=== PATIENT | female | born 1950 ===

== ENCOUNTER 2018-01-31 11:54 | Inpatient (IN) | payer MEDICARE ==
[~2018-01-31] VITALS: Ht 157.5 cm; Wt 67.7 kg
[2018-01-31] VITALS (11 sets, daily range): BP systolic 89–152; BP diastolic 48–81
--- NOTE | 2018-01-31 11:59 | NUR ---
ADMIT FEMALE PT TO 2A WITH A C/O FEVER. TEMP IS 102.8F. HR IS TACHYCARDIC AT 120B/MIN. O2SAT ON RA IS 80%. PT IS VERY LETHARGIC.
--- NOTE | 2018-01-31 12:10 | NUR ---
PLACED PT ON 100% NRM. O2SAT UP TO 100%. STARTED IV G20 LEFT AC AND ADDED ANOTHER IV LINE ON THE LEFT UPPER ARM G20 ORDERED.
--- NOTE | 2018-01-31 12:25 | NUR ---
STARTED IVF NS 1L ORDERED. ALL BLOOD CULTURES DRAWN BY RIPSHEAR OPERATOR.
--- NOTE | 2018-01-31 12:30 | NUR ---
SEEN AND EXAMINED BY DR MONTERO AND RECOMMENDED TO INTUBATE THE PT. NOTIFIED RT.
[2018-01-31] MEDS ORDERED: METRONIDAZOLE 500 MG/NS 100ML 100 ML IV ONE ×2 (12:45→13:41)
[2018-01-31] MEDS ORDERED: GENTAMICIN SULFATE INJ 80 MG in IV DEXTROSE 5% 100 ML IV ONE (12:45)
[2018-01-31] MEDS ORDERED: IV NORMAL SALINE 1000 ML BAG IV ONE (12:45)
[2018-01-31] MEDS ORDERED: VANCOMYCIN IV 1,000 MG in IV DEXTROSE 5% 250 ML IV ONE (12:45)
[2018-01-31] MEDS ORDERED: ACETAMINOPHEN 650 MG SUPP.RECT RC ONE ×2 (12:45→14:36)
--- NOTE | 2018-01-31 12:45 | NUR ---
PT TRANSFERRED TO 1A FOR THE INTUBATION.
--- NOTE | 2018-01-31 13:00 | NUR ---
PT PRE MEDICATED PRIOR TO INTUBATION WITH ETOMADATE 20MG IVP PER MD ORDER, PT STILL VERY RESTLESS. FOLLOWED BY VERSED 5MG IVP, AND THEN FOLLOWED WITH SUCCINYLCHOLINE 150MG IVP. SUCCESFUL INTUBATION USING 7.5 ET AT 22LIP LINE. ET TUBE CONNECTED TO VENTILATOR SETTING OF AC20, FIO2-100, VT-500, PEEP-5. PT STILL VERY RESTLESS. APPLIED SOFT WRIST RESTRAINTS BOTH ARMS.
[2018-01-31 13:02] LABS: BASOPHILS % (AUTO) 0.3 % (0.0-2.0); EOSINOPHILS % (AUTO) 0.1 % (0.0-7.0); HEMATOCRIT 41.6 % (31.2-41.9); HEMOGLOBIN 14.1 g/dL (10.9-14.3); LYMPHOCYTES # (AUTO) 0.5 K/uL (20.0-40.0); LYMPHOCYTES % (AUTO) 4.7 % (20.5-51.5); MEAN CORPUSCULAR HGB CONC 34 g/dL (32.3-35.6); MEAN CORPUSCULAR VOLUME 94.2 fL (75.5-95.3); MONOCYTES # (AUTO) 0.5 K/uL (2.0-10.0); MONOCYTES % (AUTO) 4.8 % (0.0-11.0); NEUTROPHILS # (AUTO) 9.2 K/uL (1.8-8.9); NEUTROPHILS % (AUTO) 90.1 % (38.5-71.5); PLATELET COUNT (AUTO) 218 K/uL (179-408); RED BLOOD CELL COUNT(AUTO) 4.42 MIL/uL (3.63-4.92); WHITE BLOOD COUNT (AUTO) 10.2 K/uL (3.8-11.8)
--- NOTE | 2018-01-31 13:05 | NUR ---
Pt orally intubated in ER by Dr Peralta, using a 7.5 ETT secured at 22cm lip line. Good color changed noted on capnographer, breath sounds equal bilateral. Pt placed on Continuous mechanical ventilation via Villegas vent with ordered settings of AC-20, VT-600, FIO2-100, PEEP+5. Pt tolerating vent settings well. SpO2-100% Blood gas drawn and results reported to Dr. Peralta, no changes ordered. Vent alarm parameters checked, on and audible. Vent plugged into red emergency outlet. Bag/valve/mask at bedside. Will continue to monitor Pt.
[2018-01-31] MEDS ORDERED: MIDAZOLAM HCL 5 MG/ML VIAL ONE (13:08)
[2018-01-31 13:09] LABS: CREATININE 0.9 mg/dL (0.6-1.3); POTASSIUM 3.3 mmol/L (3.5-5.1)
[2018-01-31 13:21] LABS: BILIRUBIN,DIRECT 0.1 mg/dL (0.0-0.2); BILIRUBIN,TOTAL 0.5 mg/dL (0.2-1.0); TOTAL PROTEIN, SERUM 7.9 g/dL (6.4-8.2)
[2018-01-31] MEDS ORDERED: VANCOMYCIN HCL 500 MG VIAL ONE (13:41)
[2018-01-31] MEDS ORDERED: GENTAMICIN SULFATE 80 MG/2 ML VIAL ONE (13:41)
[2018-01-31 13:46] LABS: ABG HCO3 23.4 mmol/L; ABG PCO2 42.2 mmHg (35.0-45.0); ABG PH 7.361 (7.350-7.450); ABG PO2 96.9 mmHg (75.0-100.0); ABG SITE RIGHT BRACHIAL; ABG TOTAL HEMOGLOBIN 12.7 G/dL (12.0-16.0); COHb 1.5 % (0.5-1.5); MetHb 0.3 % (0.0-1.5); O2Hb 95.7 % (94.0-97.0); VENT MODE VENT - A/C; VT, ABG 600 mL
--- NOTE | 2018-01-31 13:46 | NUR ---
ABG DONE 1 HOR POST INTUBATION AND RESULT INFORMED MD. VENT SETTING REMAINED THE SAME. NGT FR16 INSERTED ON THE LEFT NARES ORDERED. POST INTUBATION PCXR DONE.
[2018-01-31] MEDS ORDERED: VANCOMYCIN IV 200 ML ONE (13:55)
[2018-01-31] MEDS ORDERED: PROPOFOL 100 ML ONE ×2 (13:58→19:23)
[2018-01-31] MEDS: PROPOFOL 100 ML IV PRN (14:17)
[2018-01-31] MEDS ORDERED: ACETAMINOPHEN 325 MG SUPP ONE (14:44)
--- NOTE | 2018-01-31 15:20 | NUR ---
PT'S TEMPERATURE STILL UP 102.8F. MEDICATED WITH TYLENOL 975MG SUPPOSITORY GIVEN. UNABLE TO INSERT A FOLEYCATHETER DUE TO SOME PROLAPSE AT THE VAGINAL CANAL. AWARE.
--- NOTE | 2018-01-31 16:17 | NUR ---
DIPRIVAN DRIP UP TO 3OMCG/KG/MIN, PT GETS VERY AGITATED.
--- NOTE | 2018-01-31 18:30 | NUR ---
SEEN AND EXAMINED BY DR MCLAUGHLIN. HE WILL ORDER ADMITTING ORDERS. VENT SETTING RIGHT NOW IS AC20, FIO2-100%, VT-600, PEEP-5. O2SAT 100%. LATEST TEMP IS 102F. APPLIED COLD COMPRESS.
--- NOTE | 2018-01-31 19:00 | NUR ---
REPORT GIVEN TO EDIN SEVILLA. PT IS BEING ADMITTED TO CCU2.
[2018-01-31] MEDS ORDERED: PROPOFOL 1,000 MG/100 ML BOTTLE IV ONE (19:15)
[2018-01-31] MEDS ORDERED: ETOMIDATE 20 MG/10 ML VIAL IV ONE (19:19)
[2018-01-31] MEDS ORDERED: SUCCINYLCHOLINE CHLORIDE 200 MG/10 ML VIAL IV ONE (19:19)
--- NOTE | 2018-01-31 19:21 | NUR ---
MRSA SWAB DONE.
[2018-01-31] MEDS ORDERED: MAGNESIUM HYDROXIDE 30 ML LIQUID UDC PO PRN (19:30)
[2018-01-31] MEDS ORDERED: ONDANSETRON 4 MG/2 ML VIAL IV PRN (19:30)
[2018-01-31] MEDS ORDERED: HYDROCODONE/APAP 5-325MG TABLET PO PRN (19:30)
--- NOTE | 2018-01-31 19:44 | NUR ---
CLINICAL PHARMACY NOTE:VANCOMYCIN DOSING Request for vancomycin dosing on 67 y/o female 5'2" 155lbs for possible pneumonia Temp 102.8 BUN 15 Scr 0.9 WBC 10.2 also receiving Zosyn Received vancomycin 1gm in ER. Continue vancomycin 1gm ivpb q20h estimated trough 16. Will order trough level prior to 4ht dose. Will continue to monitor
--- NOTE | 2018-01-31 19:45 | NUR ---
Admitted pt to CCU Room-2 via gurney accompanied by ACID CORRECTION HAND and RTs, being bagged en route. Admission Dx: Acute Resp. Failure, under the services of Dr. Gunnar Canales/[facility]. Made comfortable in bed. Attached to vent with prescribed settings and manager cardiac, rhythm Sinus Tachy. Routine CCU admission care rendered. Please see CCU Admission Data/Profile. Unable to complete admission interview due to pt condition, absence of family/significant others, and no previous med records available. For follow up.
[2018-01-31] MEDS: IV NS 1000 ML 1,000 ML IV PRN (20:21)
[2018-01-31] MEDS: ENOXAPARIN SODIUM 40 MG/0.4 ML DISP.SYRIN SQ SCH (20:22)
--- NOTE | 2018-01-31 21:00 | NUR ---
Dr. Canales called for pt condition update and order verification. Aware of elevated Troponin trend, now up to 0.162 from initial <0.017. Order to do q 6 hr EKG and AM Echo. Will also start ASA, Lovenox, Lopressor. NG tube left nare repositioned to 60 cm at nasal tip and kept secure. Will repeat CXR in AM. Smith Fr. 16 inserted aseptically and atraumatically with immediate return of slightly cloudy yellow urine 1000 ml. Noted what appears to be a ?cystocele/prolapse. Remains febrile and cooling measures done. Diprivan drip titrating for sedation, NS at 75 ml/hr via 2 separate IV sites left arm. Bilateral soft wrist restraints in place, circ checks adequate. Nursing comfort measures and safety precautions observed at all times.
[2018-01-31] MEDS: PIPERACILLIN SODIUM/TAZOBACTAM 4.5 G in IV DEXTROSE 5% 50 ML IV SCH (21:18)
[2018-01-31] MEDS: MORPHINE SULFATE 2 MG/1 ML DISP.SYRIN IV PRN (21:21)
[2018-01-31 21:51] LABS: ABG BASE EXCESS 1.1 mmol/L; ABG HCO3 22.2 mmol/L; ABG PCO2 26.9 mmHg (35.0-45.0); ABG PH 7.535 (7.350-7.450); ABG PO2 103.9 mmHg (75.0-100.0); ABG SITE LEFT RADIAL; VENT MODE VENT - A/C; VT, ABG 600 mL
[2018-01-31 22:08] LABS: *BILIRUBIN,URIN NEGATIVE (NEGATIVE); *BLOOD, URINE 3+ (NEGATIVE); *CLARITY,URINE SLIGHTLY CLOUDY (CLEAR); *COLOR,URINE YELLOW (YELLOW); *KETONES,URINE NEGATIVE (NEGATIVE); *PROTEIN,URINE 2+ (NEGATIVE); *UROBILINOGEN,URINE 0.2 E.U./dl (NORMAL); LEUKOCYTE ESTERASE ,URINE TRACE (NEGATIVE); NITRITE, URINE NEGATIVE (NEGATIVE); PH,URINE 6.5 (5.0-8.0); UGLUCOSE NEGATIVE (NEGATIVE)
[2018-01-31 22:14] LABS: BACTERIA,URINE FEW /HPF (NONE SEEN); RBC,URINE 50-80 /HPF (0-3); SQUAMOUS EPITHELIAL CELL,UR MODERATE /HPF (NONE SEEN)
[2018-01-31 22:15] LABS: MUCUS,URINE MODERATE /LPF (0-FEW)
--- NOTE | 2018-01-31 22:15 | NUR ---
RECEIVED PATIENT IN ER. PATIENT IS ORALLY INTUBATED WITH A 7.5 ET TUBE. ET TUBE IS SECURED WITH THE ANCHOR FAST AND IS AT 22 CM AT THE LIP. PATIENT IS ON A GEE VENTILATOR WITH THE FOLLOWING SETTINGS: AC 20, VT 600, PEEP +5, FIO2 100%. SUCTIONED THICK WHITE/YELLOW SECRETIONS. TRANSPORTED PATIENT TO CCU BED 2 VIA AMBU BAG. NO COMPLICATIONS AND NO INCIDENT DURING TRANSPORT. HME CHANGED. ET TUBE MOVED TO THE LEFT SIDE OF THE MOUTH. VENT ALARMS CHECKED AND THEY ARE ON AND AUDIBLE. BLOOD GAS DRAWN AND RESULTS GIVEN TO DI UDFFY. CHANGED VENT SETTINGS PER MD ORDERS. VENT SETTINGS ARE NOW: AC 18, VT 600, PEEP +5, AND FIO2 60%. VENT IS PLUGGED IN THE RED OUTLET. AMBU BAG BY BEDSIDE. NO SOB NOTED AT THIS TIME. WILL CONTINUE TO MONITOR PATIENT.
[2018-01-31] MEDS: METOPROLOL TARTRATE 25 MG TABLET PO SCH (22:24)
[2018-01-31] MEDS: ASPIRIN 81 MG TAB.CHEW GT SCH (22:25)
[2018-01-31] MEDS: ACETAMINOPHEN 325 MG TABLET PO PRN (22:26)
[2018-01-31] MEDS: Z GUARD REMEDY PASTE 57 GM TUBE TOP PRN (22:27)
[2018-01-31] MEDS: PANTOPRAZOLE SODIUM 40 MG VIAL IV SCH (22:47)
[2018-02-01] VITALS (34 sets, daily range): BP systolic 91–151; BP diastolic 50–82
[2018-02-01] MEDS: PROPOFOL 100 ML IV PRN ×8 (01:27→23:17)
--- NOTE | 2018-02-01 02:00 | NUR ---
Troponin slightly down to 0.152. Monitor remains SR isolated PVC. Noted more secretions requiring frequent suctioning. Oral care done q 2 hr and PRN. HOB up and aspiration precautions maintained at all times.
--- NOTE | 2018-02-01 03:00 | NUR ---
Increased coughing, bucking the vent. Reinforced presence and need for ETT and soft wrist restraints. Encouraged to relax/rest. Diprivan drip continues to infuse (See IV spreadsheet). Morphine 2 mg IV given with good effect.
[2018-02-01] MEDS: MORPHINE SULFATE 2 MG/1 ML DISP.SYRIN IV PRN ×3 (03:04→19:06)
[2018-02-01 04:56] LABS: BASOPHILS # (AUTO) 0.1 K/uL (0.0-8.0); BASOPHILS % (AUTO) 0.5 % (0.0-2.0); EOSINOPHILS % (AUTO) 0.1 % (0.0-7.0); HEMATOCRIT 31.8 % (31.2-41.9); HEMOGLOBIN 10.8 g/dL (10.9-14.3); LYMPHOCYTES # (AUTO) 1.4 K/uL (20.0-40.0); LYMPHOCYTES % (AUTO) 12.6 % (20.5-51.5); MEAN CORPUSCULAR HEMOGLOBIN 31.2 uug (24.7-32.8); MEAN CORPUSCULAR HGB CONC 34 g/dL (32.3-35.6); MEAN CORPUSCULAR VOLUME 91.8 fL (75.5-95.3); MONOCYTES # (AUTO) 0.6 K/uL (2.0-10.0); NEUTROPHILS # (AUTO) 9.1 K/uL (1.8-8.9); NEUTROPHILS % (AUTO) 81.8 % (38.5-71.5); PLATELET COUNT (AUTO) 173 K/uL (179-408); RED BLOOD CELL COUNT(AUTO) 3.46 MIL/uL (3.63-4.92); WHITE BLOOD COUNT (AUTO) 11.1 K/uL (3.8-11.8)
[2018-02-01] MEDS: PIPERACILLIN SODIUM/TAZOBACTAM 4.5 G in IV DEXTROSE 5% 50 ML IV SCH ×3 (05:14→22:21)
[2018-02-01 05:15] LABS: THYROID STIMULATING HORMONE 1.255 mIU/mL (0.358-3.740)
[2018-02-01 05:19] LABS: BILIRUBIN,TOTAL 0.9 mg/dL (0.2-1.0); CREATININE 0.9 mg/dL (0.6-1.3); PHOSPHOROUS 2.4 mg/dL (2.5-4.9); POTASSIUM 2.9 mmol/L (3.5-5.1); TOTAL PROTEIN, SERUM 6.2 g/dL (6.4-8.2)
--- NOTE | 2018-02-01 06:00 | NUR ---
Am care rendered. Cooling measures continued; temp has been down to 99.5 orally. Continues to require Diprivan at 40 mcg/kg/min for max. sedation. Still readily gets agitated with tactile stimulation. Seem to prefer being turned to right side. Await for Dr. Ulloa for pulmonary consult. Please see CCU flowsheet and IV spreadsheet for trends and clinical data.
[2018-02-01] MEDS: IV NS 1000 ML 1,000 ML IV PRN ×2 (06:12→18:48)
[2018-02-01] MEDS: Z GUARD REMEDY PASTE 57 GM TUBE TOP PRN (06:12)
--- NOTE | 2018-02-01 07:49 | NUR ---
RECEIVED A 67 Y/O FEMALE PT, A CASE OF ACUTE RESPIRATORY FAILURE, UNDER SEDATION, BREATHING VIA ETT SIZE 7.5, LL 22, ON CMV WITH FIO2 60%, RR 18,TV600,PEEP 5. CONNECTED TO BOX TENDER SHOWING SR, HAS A NGT ON INTERMITTENT SUCTION, HAS TWO IV LINES, LT AC AND LT UA BOTH G20 RECEIVING IVF N/S @75ML/HR AND DIPRIVAN INF @ 40MG/HR, URINATING VIA FC. HOB ELEVATED.
[2018-02-01 07:58] LABS: ABG BASE EXCESS 1.8 mmol/L; ABG HCO3 23.7 mmol/L; ABG PCO2 28.1 mmHg (35.0-45.0); ABG PH 7.543 (7.350-7.450); ABG SITE RIGHT RADIAL; ABG TOTAL HEMOGLOBIN 10.9 G/dL (12.0-16.0); COHb 1.2 % (0.5-1.5); O2Hb 89.9 % (94.0-97.0); VENT MODE VENT - A/C
[2018-02-01 07:59] LABS: VT, ABG 600 mL
--- NOTE | 2018-02-01 08:30 | NUR ---
SEEN BY DR IGRON, UPDATES GIVEN ON PT , ASSESSMENT DONE.
[2018-02-01] MEDS: ASPIRIN 81 MG TAB.CHEW GT SCH (09:04)
[2018-02-01] MEDS: METOPROLOL TARTRATE 25 MG TABLET PO SCH ×2 (09:05→21:53)
[2018-02-01] MEDS: POTASSIUM CHLORIDE 50 ML IV SCH ×5 (09:05→13:49)
[2018-02-01] MEDS: PANTOPRAZOLE SODIUM 40 MG VIAL IV SCH (09:05)
--- NOTE | 2018-02-01 10:00 | NUR ---
SEEN BY DR TELLO, UPDATES GIVEN, ALL NEW ORDERS CARRIED OUT.
[2018-02-01] MEDS: VANCOMYCIN IV 1 G in PREMIXED 0 EACH IV SCH (10:15)
--- NOTE | 2018-02-01 12:37 | NUR ---
Clinical pharmacy note-Vancomycin dosing per pharmacy Subjective: To continue Vancomycin dosing on this patient for suspected pneumonia Objective: BUN 12 Scr 0.9 WBC 11.1 Temp 101.1 Ht 5'2" Wt 155 lbs Assessment/Plan: Will continue Vancomycin 1 gram IV every 20 hrs (third dose due tomorrow at 0600) and draw trough by 4th dose(not ordered yet) for expected trough around 16. Will monitor renal function closely to adjust the dose if needed.
[2018-02-01] MEDS ORDERED: NEUTRA PHOS PACKET PO ONE (15:15)
--- NOTE | 2018-02-01 15:50 | NUR ---
PT REMAINS ON MECHANICAL VENTILATION, TOLERATING CURRENT VENT SETTINGS WELL. NO S/S OF RESPIRATORY DISTRESS NOTED. ETT IS PATENT AND SECURED WITH TUBE BRAY AT 22 CM LIP LINE. SUCTIONED MODERATE AMOUNTS OF PALE YELLOW THICK SECRETIONS. ALARMS ARE ON AND AUDIBLE, BVM AT BEDSIDE. WILL CONTINUE TO MONITOR. CURRENT VENT SETTINGS AC 18, Vt 600, +5, 70% FIO2.
[2018-02-01] MEDS: OSMOLITE 1.2 CAL 1,000 ML LIQUID GT PRN (17:47)
--- NOTE | 2018-02-01 18:00 | NUR ---
PT TEMP 102.1, COLD COMPRESSES APPLIED AND COLD MATTRESS ORDERED.
[2018-02-01] MEDS: ACETAMINOPHEN 325 MG TABLET PO PRN (18:36)
--- NOTE | 2018-02-01 19:15 | NUR ---
PT RECEIVED ON GEE VENT WITH VENT SETTINGS OF AC 18, VT 600, PEEP +5, FIO2 60%. PT IS ORALLY INTUBATED WITH A 7.5 ETT APPROXIMATELY 22CM LIP LINE. VENT ALARMS CHECKED, ARE ON AND AUDIBLE. HME CHANGED. ORAL CARE DONE. ETT MOVED TO PT'S RIGHT SIDE OF MOUTH. NO VENT CHANGES MADE AT THIS TIME. AMBU BAG IS AT BEDSIDE. WILL CONTINUE TO MONITOR THROUGHOUT SHIFT. Addendum: 02/01/18 at 1932 by TORY DUBOIS RT SUCTIONED MODERATE AMOUNT OF THICK, PALE SECRETIONS AT THIS TIME.
--- NOTE | 2018-02-01 19:30 | NUR ---
Pt in room alert awake in no acute distress. Noted with periods of agitation when recently suctioned. IV sites patent and intact. Maintaining propofol at 40mcg/min and osmolilte 10ml/hr. F/c in tact clear and yellow with no odor. Temp noted 99.4 with cooling measures currently applied. radiation monitor showing sinus rhythm. Urine obtained for drug screening and sent to lab. 3 side rails raised with soft restraints maintained bilateral. RT is aware. Will continue to monitor.
[2018-02-01 20:12] LABS: *AMPHETAMINE, URINE NEGATIVE (NEGATIVE); *BARBITURATE, URINE NEGATIVE (NEGATIVE); *CANNABINOID, URINE NEGATIVE (NEGATIVE); *COCCAINE, URINE NEGATIVE (NEGATIVE); *OPIATE, URINE POSITIVE (NEGATIVE); *PHENCYCLIDINE SCREEN,URINE NEGATIVE (NEGATIVE)
--- NOTE | 2018-02-01 21:30 | NUR ---
PICC line successfully inserted to right upper arm by DI Lane. CXR done for placement. Ariana verified ok for PICC line to use. Peripheral IVs d/c. Diprivan & main IV attached to PICC line. Pt remained restless and agitated. New orders received from [facility] Harper may be increased up to 100mcg/kg/min. Noted and carried out.
[2018-02-01] MEDS: ATORVASTATIN 20 MG TABLET PO SCH (21:51)
[2018-02-01] MEDS: ENOXAPARIN SODIUM 40 MG/0.4 ML DISP.SYRIN SQ SCH (21:54)
[2018-02-01] MEDS: LORAZEPAM 2 MG/1 ML VIAL IV PRN (22:21)
[2018-02-02] VITALS (35 sets, daily range): BP systolic 94–151; BP diastolic 50–80
[2018-02-02] MEDS: PROPOFOL 100 ML IV PRN ×8 (00:46→22:31)
[2018-02-02] MEDS: MORPHINE SULFATE 2 MG/1 ML DISP.SYRIN IV PRN (01:26)
[2018-02-02 04:50] LABS: BASOPHILS % (AUTO) 0.3 % (0.0-2.0); EOSINOPHILS # (AUTO) 0.2 K/uL (0.0-0.7); EOSINOPHILS % (AUTO) 1.9 % (0.0-7.0); HEMATOCRIT 26.6 % (31.2-41.9); HEMOGLOBIN 9.2 g/dL (10.9-14.3); LYMPHOCYTES # (AUTO) 1.3 K/uL (20.0-40.0); LYMPHOCYTES % (AUTO) 12.8 % (20.5-51.5); MEAN CORPUSCULAR HEMOGLOBIN 31.7 uug (24.7-32.8); MEAN CORPUSCULAR HGB CONC 35 g/dL (32.3-35.6); MEAN CORPUSCULAR VOLUME 91.8 fL (75.5-95.3); MONOCYTES # (AUTO) 0.5 K/uL (2.0-10.0); MONOCYTES % (AUTO) 5.3 % (0.0-11.0); NEUTROPHILS # (AUTO) 8.2 K/uL (1.8-8.9); NEUTROPHILS % (AUTO) 79.7 % (38.5-71.5); PLATELET COUNT (AUTO) 140 K/uL (179-408); WHITE BLOOD COUNT (AUTO) 10.3 K/uL (3.8-11.8)
[2018-02-02 04:56] LABS: CREATININE 0.6 mg/dL (0.6-1.3); MAGNESIUM 1.9 mg/dL (1.8-2.4); PHOSPHOROUS 2.3 mg/dL (2.5-4.9)
[2018-02-02 05:12] LABS: POTASSIUM 2.8 mmol/L (3.5-5.1)
[2018-02-02] MEDS: PIPERACILLIN SODIUM/TAZOBACTAM 4.5 G in IV DEXTROSE 5% 50 ML IV SCH ×3 (05:59→21:26)
--- NOTE | 2018-02-02 06:15 | NUR ---
Serum Potassium reported 2.8 this morning. Nathan Braxton notified and ordered 60 meq KCL IV. Noted and carried out.
[2018-02-02] MEDS: VANCOMYCIN IV 1 G in PREMIXED 0 EACH IV SCH (06:29)
[2018-02-02] MEDS: POTASSIUM CHLORIDE 50 ML IV SCH ×6 (07:08→12:01)
--- NOTE | 2018-02-02 07:10 | NUR ---
PT WAS RECEIVED ON GEE VENT V#001 SETTING OF AC 18 VT 600 PEEP +5 FIO2 60%. PT ET-TUBE SECURED AND INTACT. 7.5 AT 22CM TUBE WAS MOVED TO THE LEFT SIDE. PT HME WAS CHANGED. PT SUCTION . CUFF CHECK WITH LUDLOW MACHINE OPERATOR. PT HAS NO TX ORDER. PT ABG WILL BE DONE AT 0900. VENT ALARMS ON AND AUDIBLE WILL CONTINUE TO MONITOR PT. AMBU-BAG AT BED SIDE.
--- NOTE | 2018-02-02 07:12 | NUR ---
Driprivan drip 50 ml bottles were used for this patient. Pharmacy aware of new orders.
--- NOTE | 2018-02-02 07:19 | NUR ---
All notes and documentation by Tan Spangler RN (on orientation) are checked by me for accuracy.
--- NOTE | 2018-02-02 07:25 | NUR ---
RECEIVED A 67 Y/O FEMALE PT, A CASE OF ACUTE RESPIRATORY FAILURE, UNDER SEDATION, BREATHING VIA ETT SIZE 7.5, LL 22, ON CMV WITH FIO2 60%, RR 18,TV600,PEEP 5. CONNECTED TO PRODUCTION LINE WORKER SHOWING SR, HAS A NGT ON TUBE FEEDING @ RATE 20ML/HR. HAS A RT UPPER PICC LINE RECEIVING IVF N/S @75ML/HR AND DIPRIVAN INF @ 70 mcg/HR, URINATING VIA FC. HOB ELEVATED. RECEIVING KCL COVERAGE.
[2018-02-02] MEDS ORDERED: POTASSIUM CHLORIDE 50 ML IV SCH (08:15)
--- NOTE | 2018-02-02 08:30 | NUR ---
SEEN BY DR ATKINS, UPDATES GIVEN ON PATIENT. NO NEW ORDERS.
[2018-02-02] MEDS: LORAZEPAM 2 MG/1 ML VIAL IV PRN ×3 (08:57→21:33)
[2018-02-02] MEDS: METOPROLOL TARTRATE 25 MG TABLET PO SCH ×2 (08:57→21:23)
[2018-02-02] MEDS: PANTOPRAZOLE ORAL SUSPENSION 40 MG SUSPDR.PKT GT SCH (08:57)
[2018-02-02] MEDS: ASPIRIN 81 MG TAB.CHEW GT SCH (08:57)
[2018-02-02 09:09] LABS: ABG BASE EXCESS 0.3 mmol/L; ABG HCO3 23.6 mmol/L; ABG PCO2 33.4 mmHg (35.0-45.0); ABG PH 7.467 (7.350-7.450); ABG PO2 69.1 mmHg (75.0-100.0); ABG SITE RIGHT RADIAL; ABG TOTAL HEMOGLOBIN 10.8 G/dL (12.0-16.0); COHb 0.6 % (0.5-1.5); MetHb 0.3 % (0.0-1.5); O2Hb 92.6 % (94.0-97.0); VENT MODE VENT - A/C; VT, ABG 600 mL
--- NOTE | 2018-02-02 09:35 | NUR ---
Clinical pharmacy note-Vancomycin dosing per pharmacy Subjective: To continue Vancomycin dosing on this 67 yo female patient for suspected pneumonia Objective: BUN 9 Scr 0.6 WBC 10.3 Temp 99.2 Ht 157.4 cm Wt 70.7 kg Assessment/Plan: Will continue same dose of Vancomycin 1 gram IV every 20 hrs for today. Third dose given today at 0600. Plan to draw trough by 4th dose(ordered for 02/03 at 0130-RN has been informed to hold 020 dose if vanco trough level is above 20 mcg/ml). Pharmacy shall review the level in am & adjust the dose if needed. Will follow
[2018-02-02] MEDS: IV NS 1000 ML 1,000 ML IV PRN ×2 (09:59→22:27)
--- NOTE | 2018-02-02 14:00 | NUR ---
TUBE FEEDING HELD FOR 4 HOURS ORDERED.
--- NOTE | 2018-02-02 14:30 | NUR ---
SEEN BY DR TELLO , UPDATES GIVEN ON PT AND RECEIVED ALL NEW ORDERS,
--- NOTE | 2018-02-02 15:00 | NUR ---
SEEN BY DR ORTIZ, UPDATES GIVEN ON PT, NO NEW ORDERS.
[2018-02-02] MEDS ORDERED: NEUTRA PHOS PACKET PO ONE (15:30)
--- NOTE | 2018-02-02 16:00 | NUR ---
RECEIVED A CALL FROM PATIENTS DAUGHTER " NIRANJAN ARTEAGA" UPDATES GIVEN ABOUT PT, RECEIVED BRIEF HISTORY FROM HER, PT IS MEDICALLY FREE, BUT HAS A DRUG ABUSE PROBLEM, HAS BEEN COMPLAINING OF BACK PAIN AND IS RECEIVING PRESCRIBED PAIN KILLERS. PT DOESN'T LIVE WITH DAUGHTER ( DAUGHTER LIVES IN [facility]).PT WAS DROPPED BY AN UNKNOWN FRIEND TO ER.
[2018-02-02] MEDS: ACETAMINOPHEN 325 MG TABLET PO PRN (16:28)
[2018-02-02] MEDS: OSMOLITE 1.2 CAL 1,000 ML LIQUID GT PRN (17:53)
--- NOTE | 2018-02-02 18:00 | NUR ---
NGT ASSESSMENT DONE, TUBE IN PLACE. NO RESIDUAL .FEEDING TOLERATED AND INCREASED FEEDING TO 35ML/HR
[2018-02-02] MEDS: MORPHINE SULFATE 4 MG/1 ML DISP.SYRIN IV PRN (19:42)
--- NOTE | 2018-02-02 19:55 | NUR ---
Pt rec'd on Villegas settings AC 18, VT 600, FIO2-60% and PEEP +5. No resp. distress noted at this time. Pt appears to be tolerating mechanical ventilator settings well. Pt to be monitored throughout the shift. 7.5cm ETT patent and secure now at left side of pt's mouth. Oral care done. BVM at bedside. Villegas alarm parameters have been checked and remain audible.
[2018-02-02] MEDS: ATORVASTATIN 20 MG TABLET PO SCH (21:22)
[2018-02-02] MEDS: ENOXAPARIN SODIUM 40 MG/0.4 ML DISP.SYRIN SQ SCH (21:25)
[2018-02-03] VITALS (28 sets, daily range): BP systolic 89–154; BP diastolic 48–83
[2018-02-03] MEDS: MORPHINE SULFATE 4 MG/1 ML DISP.SYRIN IV PRN ×4 (00:02→19:55)
[2018-02-03] MEDS: PROPOFOL 100 ML IV PRN ×6 (01:01→20:30)
[2018-02-03] MEDS: VANCOMYCIN IV 1 G in PREMIXED 0 EACH IV SCH (03:04)
[2018-02-03 05:10] LABS: CREATININE 0.6 mg/dL (0.6-1.3); MAGNESIUM 1.9 mg/dL (1.8-2.4); PHOSPHOROUS 2.7 mg/dL (2.5-4.9)
[2018-02-03 05:13] LABS: BASOPHILS % (AUTO) 0.6 % (0.0-2.0); EOSINOPHILS # (AUTO) 0.2 K/uL (0.0-0.7); EOSINOPHILS % (AUTO) 3.6 % (0.0-7.0); HEMATOCRIT 25.7 % (31.2-41.9); HEMOGLOBIN 8.7 g/dL (10.9-14.3); LYMPHOCYTES # (AUTO) 1.1 K/uL (20.0-40.0); LYMPHOCYTES % (AUTO) 16.9 % (20.5-51.5); MEAN CORPUSCULAR HEMOGLOBIN 31.4 uug (24.7-32.8); MEAN CORPUSCULAR HGB CONC 34 g/dL (32.3-35.6); MEAN CORPUSCULAR VOLUME 92.7 fL (75.5-95.3); MONOCYTES # (AUTO) 0.4 K/uL (2.0-10.0); MONOCYTES % (AUTO) 5.8 % (0.0-11.0); NEUTROPHILS # (AUTO) 4.9 K/uL (1.8-8.9); NEUTROPHILS % (AUTO) 73.1 % (38.5-71.5); PLATELET COUNT (AUTO) 135 K/uL (179-408); RED BLOOD CELL COUNT(AUTO) 2.77 MIL/uL (3.63-4.92); WHITE BLOOD COUNT (AUTO) 6.6 K/uL (3.8-11.8)
--- NOTE | 2018-02-03 05:15 | NUR ---
Pt remains on Villegas with no changes made to the ventilator settings. No resp. distress noted throughout the shift. BVM at bedside. Pt appeared to have sindy'd ventilator settings well and was routinely sx'd. 7.5 ETT remains patent and secure at approx. 22cm at the left side of the pt's mouth. Villegas alarm parameters have been checked and remain audible.
[2018-02-03 05:16] LABS: POTASSIUM 2.6 mmol/L (3.5-5.1)
[2018-02-03] MEDS: PIPERACILLIN SODIUM/TAZOBACTAM 4.5 G in IV DEXTROSE 5% 50 ML IV SCH ×3 (07:06→21:44)
--- NOTE | 2018-02-03 07:15 | NUR ---
report received from Domenico SEVILLA. 67 yr old female, was admitted on 01/31/18 for acute respiratory failure. was readily intubated in ED. remains intubated. ett to vent ac 18, tv 600, fio2 60% eep 5cm. on propofol drip at 75mcg/kg/min. has a PICC line ELLY IV NS at 75ml/hr.is receiving tube fdg osmolite 1.5 via ngt conde catheter intact with good urine output. on air mattress, DVT pumps. wrist restraints are intact. Addendum: 02/03/18 at 0808 by ORTIZ NORIEGA RN Amended: Links added.
--- NOTE | 2018-02-03 07:20 | NUR ---
Pt received orally intubated in semi villegas position, with 7.5 ETT secured at 22cm lip line with [place] Fast device. Pt is on Continuous mechanical ventilation via Villegas vent on ordered settings of AC-18, VT-600, PEEP+5, FIO2-60%. Tolerating vent settings well. SpO2-100%. Sxn'd & lavaged as needed. Oral care done. ETT moved, alternating from side to side every other vent check per. HME changed. Vent alarm parameters checked, on and audible. Vent plugged into red emergency outlet. Bag/valve/mask at bedside.
--- NOTE | 2018-02-03 07:31 | NUR ---
Recd pts , REPORT GIVEN BY AKI SEVILLA.
--- NOTE | 2018-02-03 07:33 | NUR ---
Potassium is 2.6 at 0500 MD WAS NOT CALLED BECAUSE HER POT.YES WAS THE LEVEL .
--- NOTE | 2018-02-03 08:00 | NUR ---
propofol drip off for sedation vacation. plan to wean from vent today. Addendum: 02/03/18 at 0809 by ORTIZ NORIEGA RN Amended: Links added. Addendum: 02/03/18 at 0810 by ORTIZ NORIEGA RN Amended: Links added.
--- NOTE | 2018-02-03 08:10 | NUR ---
tube fdg titrated up to 45 ml/hr Addendum: 02/03/18 at 0810 by ORTIZ NORIEGA RN Amended: Links added.
--- NOTE | 2018-02-03 08:35 | NUR ---
medicated for generalized discomfort Addendum: 02/03/18 at 0837 by ORTIZ NORIEGA RN Amended: Links added.
--- NOTE | 2018-02-03 08:40 | NUR ---
Pt placed on CPAP PSV 8 as ordered. Pt lasted about 10 mins and then became apneic and SpO2 dropped to 88%. Resumed previous settings. DI hurtado. ABG drawn and results reported to Dr. Ulloa.
[2018-02-03] MEDS: POTASSIUM CHLORIDE 50 ML IV SCH ×5 (08:46→13:01)
[2018-02-03] MEDS ORDERED: MIRALAX 17 GM POWD.PACK PO ONE (09:00)
[2018-02-03] MEDS: ASPIRIN 81 MG TAB.CHEW GT SCH (09:02)
[2018-02-03] MEDS: METOPROLOL TARTRATE 25 MG TABLET PO SCH ×2 (09:02→20:49)
[2018-02-03] MEDS: PANTOPRAZOLE ORAL SUSPENSION 40 MG SUSPDR.PKT GT SCH (09:03)
[2018-02-03 09:11] LABS: ABG HCO3 23.2 mmol/L; ABG PCO2 41.7 mmHg (35.0-45.0); ABG PH 7.364 (7.350-7.450); ABG PO2 78.3 mmHg (75.0-100.0); ABG SITE RIGHT RADIAL; ABG TOTAL HEMOGLOBIN 10.8 G/dL (12.0-16.0); COHb 0.6 % (0.5-1.5); CPAP,BG 8 cmH20; MetHb 0.1 % (0.0-1.5); O2Hb 93.2 % (94.0-97.0); VENT MODE CPAP
[2018-02-03] MEDS: LORAZEPAM 2 MG/1 ML VIAL IV PRN ×2 (09:12→18:36)
--- NOTE | 2018-02-03 11:22 | NUR ---
Clinical pharmacy note-Vancomycin dosing per pharmacy Subjective: To continue Vancomycin dosing on this 67 yo female patient for suspected pneumonia Objective: BUN 8 Scr 0.6 WBC 6.6 Temp 98.8 Ht 157.4 cm Wt 70.7 kg Vancomycin trough today at 0130: 4.2 Assessment/Plan: Since Vancomycin trough is subtherapeutic, will increase dose to 1 gram every 10 hrs (second dose today at 13) . Plan to draw trough by 4th dose(not ordered yet) for expected trough around 14.8. Will follow daily.
--- NOTE | 2018-02-03 11:31 | NUR ---
K2.6/ replacement started IV with 5 bags total 50MEq/ Addendum: 02/03/18 at 1132 by ORTIZ NORIEGA RN Amended: Links added.
--- NOTE | 2018-02-03 11:36 | NUR ---
report given to Peggy RN Addendum: 02/03/18 at 1136 by ORTIZ NORIEGA RN Amended: Links added.
--- NOTE | 2018-02-03 11:46 | NUR ---
RECEIVED A 67 Y/O FEMALE PT, A CASE OF ACUTE RESPIRATORY FAILURE, UNDER SEDATION, BREATHING VIA ETT SIZE 7.5, LL 22, ON AC WITH FIO2 50%, RR 18,TV600,PEEP 5. CONNECTED TO APPRAISER IRRIGATION TAX SHOWING SR, HAS A NGT ON TUBE FEEDING @ RATE 45ML/HR. HAS A RT UPPER PICC LINE RECEIVING IVF N/S @75ML/HR AND DIPRIVAN INF @ 55 mcg/HR, URINATING VIA FC. HOB ELEVATED. RECEIVING KCL COVERAGE.
[2018-02-03] MEDS ORDERED: VANCOMYCIN IV 1 G in PREMIXED 0 EACH IV SCH (13:00)
[2018-02-03] MEDS: IV NS 1000 ML 1,000 ML IV PRN (13:01)
[2018-02-03] MEDS: OSMOLITE 1.2 CAL 1,000 ML LIQUID GT PRN (18:27)
--- NOTE | 2018-02-03 20:00 | NUR ---
RECEIVED PT.ORALLY INTUBATED TO VENT W/ SETTINGS OF AC-18, TV-600, FIO2-40%, PEEP-+5 W/ O2 SAT OF 98%. ON DIPRIVAN DRIP @55MCQ/KG/MIN VIA PICC LINE ON ELLY. SUCTIONED OROPHARYNGEALLY & VIA ETT W/ MODERATE AMT. OF THICK TANNISH MUCOUS. NGT ON L NARE , CHECKED PLACEMENT & CHECKED RESIDUAL NONE NOTED, ON TUBE FDG. OF OSMOLITE @ 45CC/HR. IVF NS @ 75CC/HR. REPOSITIONED PT. ON SIDE W/ HOB ELEVATED 30 DEGREES CONT.MEDICATED W/ MORPHINE SULFATE 2MG IVP FOR FACIAL GRIMACING & AGITATED. V/S STABLE.
[2018-02-03] MEDS: ATORVASTATIN 20 MG TABLET PO SCH (20:49)
[2018-02-03] MEDS: ENOXAPARIN SODIUM 40 MG/0.4 ML DISP.SYRIN SQ SCH (20:50)
[2018-02-04] VITALS (23 sets, daily range): BP systolic 92–166; BP diastolic 49–92
--- NOTE | 2018-02-04 | NUR ---
Patient received orally intubated with 7.5 ETTube secured at 22cm lip line with [place] Fast device. Pt is on Continuous mechanical ventilation via Villegas vent on ordered settings of AC-18, VT-600, PEEP+5, FIO2-4%. No signs of respiratory distress noted a this time. Tolerating vent settings well. Sxn'd & lavaged as needed. Oral care done. ETTube location changed throughout shift. HME changed. Vent alarm parameters checked, on and audible. Vent plugged into red emergency outlet. Bag/valve/mask at bedside.
--- NOTE | 2018-02-04 | NUR ---
HS CARE DONE. NGT RESIDUAL CHECKED NONE NOTED. AFEBRILE. REPOSITIONED PT ON HER OPPOSITE SIDE. KEPT HOB ELEVATED.
[2018-02-04] MEDS: PROPOFOL 100 ML IV PRN ×6 (00:55→23:44)
[2018-02-04] MEDS: LORAZEPAM 2 MG/1 ML VIAL IV PRN ×2 (02:38→20:35)
--- NOTE | 2018-02-04 04:00 | NUR ---
AM CARE DONE. ORAL CARE DONE FREQ. NGT RESIDUAL CHECKED NONE NOTED. REPOSITIONED W/ HOB ELEVATED.
[2018-02-04 04:54] LABS: BASOPHILS % (AUTO) 0.5 % (0.0-2.0); EOSINOPHILS # (AUTO) 0.3 K/uL (0.0-0.7); EOSINOPHILS % (AUTO) 3.6 % (0.0-7.0); HEMATOCRIT 28.5 % (31.2-41.9); HEMOGLOBIN 9.7 g/dL (10.9-14.3); LYMPHOCYTES # (AUTO) 1.4 K/uL (20.0-40.0); LYMPHOCYTES % (AUTO) 20.6 % (20.5-51.5); MEAN CORPUSCULAR HGB CONC 34 g/dL (32.3-35.6); MEAN CORPUSCULAR VOLUME 91.5 fL (75.5-95.3); MONOCYTES # (AUTO) 0.5 K/uL (2.0-10.0); MONOCYTES % (AUTO) 7.8 % (0.0-11.0); NEUTROPHILS # (AUTO) 4.7 K/uL (1.8-8.9); NEUTROPHILS % (AUTO) 67.5 % (38.5-71.5); PLATELET COUNT (AUTO) 178 K/uL (179-408); RED BLOOD CELL COUNT(AUTO) 3.12 MIL/uL (3.63-4.92)
[2018-02-04] MEDS: IV NS 1000 ML 1,000 ML IV PRN ×2 (05:13→21:10)
[2018-02-04 05:16] LABS: CREATININE 0.7 mg/dL (0.6-1.3); PHOSPHOROUS 4.7 mg/dL (2.5-4.9); POTASSIUM 3.4 mmol/L (3.5-5.1)
[2018-02-04] MEDS: PIPERACILLIN SODIUM/TAZOBACTAM 4.5 G in IV DEXTROSE 5% 50 ML IV SCH ×3 (05:29→21:53)
--- NOTE | 2018-02-04 06:00 | NUR ---
REPOSITIONED ON HER BACK FOR CXR. NEEDED TO BE SUCTIONED FREQ.
[2018-02-04] MEDS: MORPHINE SULFATE 4 MG/1 ML DISP.SYRIN IV PRN (06:16)
--- NOTE | 2018-02-04 07:15 | NUR ---
PT RECEIVED ORALLY INTUBATED ON CMV, ON A GEE VENT ON CURRENT ORDERED VENT SETTING OF A/C 18, 600, PEEP +5, 40% FIO2. PT IS CURRENTLY STILL ON SEDATION, RN TO TURN OFF SEDATION FOR WEANING. ETT IS PATENT AND SECURE WITH ANCHOR-FAST APPROX. 22CM AT THE LIP LINE. VENT PARAMETERS AND ALARMS CHECKED, ALARMS ARE AUDIBLE. PT IS TOLERATING VENT SETTINGS WELL, NO RESP. DISTRESS NOTED AT THIS TIME. AMBU-BAG AT BEDSIDE, VENT PLUGGED INTO RED OUTLET. SUCTION PRN. WILL CONTINUE TO MONITOR.
--- NOTE | 2018-02-04 07:45 | NUR ---
DECREASED PROPOFOL FOR WEANING TRIAL.
--- NOTE | 2018-02-04 08:15 | NUR ---
PATIENT MORE AWAKE. PROPOFOL OFF. PATIENT STARTED WEANING PER RT.
--- NOTE | 2018-02-04 08:15 | NUR ---
PT IS AWAKE, ALERT, AND FOLLOWING VERBAL COMMANDS. VENT CHANGES MADE PER MD ORDER, PT IS CURRENTLY ON CPAP +5, PSV 8. PT IS TOLERATING VENT SETTINGS WELL, NO RESP. DISTRESS NOTED AT THIS TIME. ABG TO DRAWN IN ONE HOUR. WILL CONTINUE TO MONITOR.
--- NOTE | 2018-02-04 08:50 | NUR ---
DOCTOR MCLAUGHLIN IN THE UNIT. NEW ORDERS PROVIDED LASIX AND POTASSIUM SUPPLEMENT. INFORMED PATIENT IS CURRENTLY WEANING.
[2018-02-04] MEDS: ASPIRIN 81 MG TAB.CHEW GT SCH (08:58)
[2018-02-04] MEDS: PROTEIN SUPPLEMENT (PROSTAT) 30 ML LIQUID GT SCH (08:58)
[2018-02-04] MEDS: METOPROLOL TARTRATE 25 MG TABLET PO SCH ×2 (08:59→21:06)
[2018-02-04] MEDS: POTASSIUM CHLORIDE 50 ML IV SCH ×4 (08:59→12:35)
[2018-02-04] MEDS: PANTOPRAZOLE ORAL SUSPENSION 40 MG SUSPDR.PKT GT SCH (08:59)
[2018-02-04] MEDS ORDERED: FUROSEMIDE 40 MG/4 ML VIAL IV ONE (09:00)
[2018-02-04 09:15] LABS: ABG HCO3 22.9 mmol/L; ABG PCO2 39.6 mmHg (35.0-45.0); ABG PO2 53.8 mmHg (75.0-100.0); ABG SITE RIGHT RADIAL; COHb 1.1 % (0.5-1.5); MetHb 0.2 % (0.0-1.5); O2Hb 83.5 % (94.0-97.0); VENT MODE CPAP
--- NOTE | 2018-02-04 09:25 | NUR ---
POST ABG RESULTS, VENT CHANGES MADE PER VERBAL ORDER. PT PLACED BACK ON PREVIOUS SETTINGS OF A/C 18, VT 600, PEEP+5, AND 40% FIO2, RN IS AWARE OF CHANGES. RN TO RESUME SEDATION, PT IS TOLERATING CURRENT VENT SETTINGS WELL, NO RESP. DISTRESS NOTED AT THIS TIME. SUCTION PRN. WILL CONTINUE TO MONITOR.
--- NOTE | 2018-02-04 09:30 | NUR ---
DOCTOR OMER IN THE UNIT TO SEE PATIENT. PATIENT CURRENTLY ON CPAP AND IS TACHYCARDIAC AND TACHYPNIEC ABG RESULTS REPORTED TO OMER. WILL WAIT ONE MORE, WEANING TRIAL TO RESUME TOMORROW. PLACED PATIENT BACK TO PREVIOUS VENT SETTINGS PER RT.
[2018-02-04] MEDS: ACETAMINOPHEN 325 MG TABLET PO PRN (12:54)
--- NOTE | 2018-02-04 13:40 | NUR ---
BASEBALL GLOVE SHAPER OF ID IS HERE TO SEE PATIENT. INFORMED OF LOW GRADE FEVER. IS AWARE OF MICRO RESULTS OF SPUTUM. SENSITIVITY TO ZOSYN. PATIENT ON ZOSYN.
[2018-02-04] MEDS: OSMOLITE 1.2 CAL 1,000 ML LIQUID GT PRN (19:56)
--- NOTE | 2018-02-04 20:00 | NUR ---
RECEIVED PT. ORALLY INTUBATED TO VENT W/ SETTINGS OF AC-18, TV-600, FIO2-40%, PEEP-+5, W/ O2 SAT OF 97%. ON DIPRIVAN DRIP @ 70MCQ/KG/MIN. VIA PICC LINE ON ELLY. IVF NS @ 75CC/HR. NGT ON L NARE, CHECKED PLACEMENT & CHECKED RESIDUAL NONE NOTED. ON TUBE FDG. OF OSMOLITE @ 45CC/HR.SUCTIONED OROPHARYNGEALLY & VIA ETT W/ LARGE AMT. OF TANNISH THICK MUCOUS. REPOSITIONED ON HER SIDE W/ HOB ELEVATED CONT.
--- NOTE | 2018-02-04 20:15 | NUR ---
PT ON CONT GEE VENT WITH 7.5 ET/TUBE IN PLACE, 22CM LIP LINE WITH ANCHOR FAST IN PLACE AND POSITION SEVERAL TIMES , PT DOES ASSIST AT TIMES, PT IS SEDATED , SUCTION A LOT OF WHITISH TINGE SECRETIONS, FROM MOUTH CLEAN MOUTH, SUCTION VERY LITTLE LIGHT PALE YELL TINGE SECRETIONS FROM ET/TUBE, SETTINGS, A/C 18, VT 600ML, PEEP5, 40%, ALL ALARMS GOOD , AMBU BAG AT BEDSIDE, NO VENT CHANGES MADE AT THIS TIME.Yuriy YOUNG RCP Addendum: 02/04/18 at 2019 by MIGUEL ÁNGEL MCGILL Amended: Links added.
--- NOTE | 2018-02-04 20:35 | NUR ---
MEDICATED W/ ATIVAN 1MG IVP FOR AGITATION. V/S STABLE.
[2018-02-04] MEDS: ATORVASTATIN 20 MG TABLET PO SCH (21:05)
[2018-02-04] MEDS: ENOXAPARIN SODIUM 40 MG/0.4 ML DISP.SYRIN SQ SCH (21:07)
--- NOTE | 2018-02-04 23:00 | NUR ---
HS CARE DONE, ORAL CARE DONE FREQ. REPOSITIONED W/ HOB ELEVATED
[2018-02-05] VITALS (23 sets, daily range): BP systolic 98–151; BP diastolic 53–77
[2018-02-05] MEDS: MORPHINE SULFATE 4 MG/1 ML DISP.SYRIN IV PRN ×4 (00:02→23:43)
[2018-02-05] MEDS: LORAZEPAM 2 MG/1 ML VIAL IV PRN ×2 (01:47→21:04)
--- NOTE | 2018-02-05 04:00 | NUR ---
AM CARE DONE. ORAL CARE DONE. REPOSITIONED ON HER BACK FOR CXR.
[2018-02-05 05:12] LABS: BASOPHILS # (AUTO) 0.1 K/uL (0.0-8.0); EOSINOPHILS # (AUTO) 0.3 K/uL (0.0-0.7); EOSINOPHILS % (AUTO) 3.9 % (0.0-7.0); HEMATOCRIT 28.6 % (31.2-41.9); HEMOGLOBIN 9.7 g/dL (10.9-14.3); LYMPHOCYTES # (AUTO) 2.1 K/uL (20.0-40.0); LYMPHOCYTES % (AUTO) 26.2 % (20.5-51.5); MEAN CORPUSCULAR HGB CONC 34 g/dL (32.3-35.6); MEAN CORPUSCULAR VOLUME 91.4 fL (75.5-95.3); MONOCYTES # (AUTO) 0.7 K/uL (2.0-10.0); MONOCYTES % (AUTO) 8.4 % (0.0-11.0); NEUTROPHILS # (AUTO) 4.8 K/uL (1.8-8.9); NEUTROPHILS % (AUTO) 60.5 % (38.5-71.5); PLATELET COUNT (AUTO) 207 K/uL (179-408); RED BLOOD CELL COUNT(AUTO) 3.13 MIL/uL (3.63-4.92)
[2018-02-05] MEDS: PROPOFOL 100 ML IV PRN ×5 (05:14→23:38)
--- NOTE | 2018-02-05 05:19 | NUR ---
MEDICATED W/ MORPHINE SULFATE 2MG IVP FOR FACIAL GRIMACING.
[2018-02-05 05:20] LABS: CREATININE 0.6 mg/dL (0.6-1.3); PHOSPHOROUS 4.2 mg/dL (2.5-4.9); POTASSIUM 3.1 mmol/L (3.5-5.1)
[2018-02-05] MEDS: PIPERACILLIN SODIUM/TAZOBACTAM 4.5 G in IV DEXTROSE 5% 50 ML IV SCH ×3 (05:28→21:04)
--- NOTE | 2018-02-05 05:52 | NUR ---
REPOSITIONED ON HER SIDE W/ HOB ELEVATED AFTER CXR DONE.
--- NOTE | 2018-02-05 07:15 | NUR ---
PT RECEIVED ORALLY INTUBATED ON CMV, ON A GEE VENT ON CURRENT ORDERED VENT SETTING OF A/C 18, 600, PEEP +5, 40% FIO2. PT IS CURRENTLY STILL ON SEDATION, RN TO TURN OFF SEDATION FOR WEANING TRIALS. ETT IS PATENT AND SECURE WITH ANCHOR-FAST APPROX. 22CM AT THE LIP LINE. VENT PARAMETERS AND ALARMS CHECKED, ALARMS ARE AUDIBLE. PT IS TOLERATING VENT SETTINGS WELL, NO RESP. DISTRESS NOTED AT THIS TIME. AMBU-BAG AT BEDSIDE, VENT PLUGGED INTO RED OUTLET. SUCTION PRN. WILL CONTINUE TO MONITOR.
--- NOTE | 2018-02-05 08:15 | NUR ---
PT IS AWAKE, ALERT, AND FOLLOWING VERBAL COMMANDS. VENT CHANGES MADE PER MD ORDER, PT IS CURRENTLY ON CPAP +5, PSV 8. RN IS AWARE OF CHANGES. PT IS TOLERATING VENT SETTINGS WELL, NO RESP. DISTRESS NOTED AT THIS TIME. ABG TO DRAWN IN ONE HOUR. WILL CONTINUE TO MONITOR.
--- NOTE | 2018-02-05 08:20 | NUR ---
DOCTOR LISSETTE IN UNIT ROUNDING ON PATIENT. NEW ORDERS PLACE- AWARE OF ABNORMAL LABS, PATIENT IS OFF PROPOFOL DURING VISIT. PATIENT VERY DROWSY
[2018-02-05 09:28] LABS: ABG BASE EXCESS 1.6 mmol/L; ABG HCO3 26.3 mmol/L; ABG PCO2 42.2 mmHg (35.0-45.0); ABG PH 7.413 (7.350-7.450); ABG PO2 63.7 mmHg (75.0-100.0); ABG SITE LEFT RADIAL; ABG TOTAL HEMOGLOBIN 10.6 G/dL (12.0-16.0); COHb 0.8 % (0.5-1.5); MetHb 0.2 % (0.0-1.5); O2Hb 88.9 % (94.0-97.0); VENT MODE VENT - CPAP
--- NOTE | 2018-02-05 09:30 | NUR ---
DOCTOR TELLO IN THE UNIT TO SEE PATIENT. NEW ORDERS AND PLACED PATIENT BACK ON AC MODE WILL CONTINUE WEANING TRIALS AGAIN TOMORROW MORNING
[2018-02-05] MEDS: PANTOPRAZOLE ORAL SUSPENSION 40 MG SUSPDR.PKT GT SCH (09:37)
[2018-02-05] MEDS: ASPIRIN 81 MG TAB.CHEW GT SCH (09:37)
[2018-02-05] MEDS: POTASSIUM CHLORIDE 50 ML IV SCH ×4 (09:38→13:41)
[2018-02-05] MEDS: METOPROLOL TARTRATE 25 MG TABLET PO SCH ×2 (09:38→20:47)
[2018-02-05] MEDS: PROTEIN SUPPLEMENT (PROSTAT) 30 ML LIQUID GT SCH (09:39)
--- NOTE | 2018-02-05 10:25 | NUR ---
POST ABG RESULTS, VENT CHANGES MADE PER DR. TELLO VERBAL ORDER. PT PLACED BACK ON PREVIOUS SETTINGS OF A/C 18, VT 600, PEEP+5, AND 40% FIO2, RN IS AWARE OF CHANGES. RN TO RESUME SEDATION, PT IS TOLERATING CURRENT VENT SETTINGS WELL, NO RESP. DISTRESS NOTED AT THIS TIME. WEANING TRIALS TO CONTINUE TOMORROW MORNING. SUCTION PRN. WILL CONTINUE TO MONITOR.
[2018-02-05] MEDS: ALBUTEROL SULFATE 2.5 MG/3 ML NEBU NEB SCH ×2 (13:22→19:29)
[2018-02-05] MEDS: IV NS 1000 ML 1,000 ML IV PRN (14:10)
[2018-02-05] MEDS: ACETAMINOPHEN 325 MG TABLET PO PRN (16:45)
[2018-02-05] MEDS: ACETYLCYSTEINE 10% 4ML VIAL NEB SCH (19:31)
--- NOTE | 2018-02-05 19:46 | NUR ---
RECEIVED PATIENT PATIENT ORALLY INTUBATED WITH A 7.5 ET TUBE. ET TUBE IS SECURED WITH THE ANCHOR FAST AND IS AT 22 CM AT THE LIP. ET TUBE IS ON THE RIGHT SIDE OF THE LIP. PATIENT IS ON A GEE VENT W/ THE FOLLOWING SETTINGS: AC 18, VT 600, PEEP +5, FIO2 40%. SUCTIONED THICK WHITE AND YELLOW SECRETIONS. HME CHANGED. ORAL CARE DONE. HHN TREATMENT GIVEN PER MD ORDERS AND TOLERATED WELL W/ NO ADVERSE REACTIONS. VENT ALARMS CHECKED AND THEY ARE ON AND LOUD. VENT IS PLUGGED IN THE RED EMERGENCY OUTLET. AMBU BAG BY BEDSIDE. NO SOB NOTED AT THIS TIME. WILL CONTINUE TO MONITOR PATIENT.
--- NOTE | 2018-02-05 20:00 | NUR ---
Remains intubated on vent. Failed CPAP trial again today; will do another attempt in AM. Appears anxious and restless on Diprivan drip at 55 mcg/kg/min. Presence and purpose of ETT and soft restraints explained to pt. Morphine IV given for max. comfort. Extremity circ checks adequate. Stable VS and rhythm. Tube feedings at goal rate well tolerated. Aspiration precautions observed at all times. HOB up 30 degrees and oral care done per VAP Protocol. Nursing comfort measures maintained. Please see CCU flowsheet for full assessment and clinical data.
[2018-02-05] MEDS: OSMOLITE 1.2 CAL 1,000 ML LIQUID GT PRN (20:16)
[2018-02-05] MEDS: ENOXAPARIN SODIUM 40 MG/0.4 ML DISP.SYRIN SQ SCH (20:47)
[2018-02-05] MEDS: ATORVASTATIN 20 MG TABLET PO SCH (20:47)
[2018-02-05] MEDS: Z GUARD REMEDY PASTE 57 GM TUBE TOP PRN (20:48)
--- NOTE | 2018-02-05 21:00 | NUR ---
Noted secretions large requiring frequent suctioning. Sporadic episodes of desaturation as low as 89%, vent checks by RT. Remains anxious and IV Ativan given. Nursing comfort and safety measures observed at all times.
[2018-02-06] VITALS (18 sets, daily range): BP systolic 109–149; BP diastolic 53–112
[2018-02-06] MEDS: ALBUTEROL SULFATE 2.5 MG/3 ML NEBU NEB SCH ×6 (01:48→23:03)
[2018-02-06] MEDS: PROPOFOL 100 ML IV PRN (03:51)
[2018-02-06 05:05] LABS: BASOPHILS # (AUTO) 0.1 K/uL (0.0-8.0); BASOPHILS % (AUTO) 1.2 % (0.0-2.0); EOSINOPHILS # (AUTO) 0.3 K/uL (0.0-0.7); EOSINOPHILS % (AUTO) 4.9 % (0.0-7.0); HEMATOCRIT 26.7 % (31.2-41.9); HEMOGLOBIN 9.1 g/dL (10.9-14.3); LYMPHOCYTES # (AUTO) 1.9 K/uL (20.0-40.0); LYMPHOCYTES % (AUTO) 28.2 % (20.5-51.5); MEAN CORPUSCULAR HEMOGLOBIN 30.9 uug (24.7-32.8); MEAN CORPUSCULAR HGB CONC 34 g/dL (32.3-35.6); MEAN CORPUSCULAR VOLUME 90.9 fL (75.5-95.3); MONOCYTES # (AUTO) 0.4 K/uL (2.0-10.0); MONOCYTES % (AUTO) 6.3 % (0.0-11.0); NEUTROPHILS % (AUTO) 59.4 % (38.5-71.5); PLATELET COUNT (AUTO) 230 K/uL (179-408); RED BLOOD CELL COUNT(AUTO) 2.94 MIL/uL (3.63-4.92); WHITE BLOOD COUNT (AUTO) 6.7 K/uL (3.8-11.8)
[2018-02-06 05:16] LABS: CREATININE 0.7 mg/dL (0.6-1.3)
[2018-02-06] MEDS: Z GUARD REMEDY PASTE 57 GM TUBE TOP PRN (05:37)
[2018-02-06] MEDS: IV NS 1000 ML 1,000 ML IV PRN (05:37)
[2018-02-06] MEDS: PIPERACILLIN SODIUM/TAZOBACTAM 4.5 G in IV DEXTROSE 5% 50 ML IV SCH ×3 (05:37→20:43)
[2018-02-06] MEDS: MORPHINE SULFATE 4 MG/1 ML DISP.SYRIN IV PRN ×2 (05:43→20:09)
--- NOTE | 2018-02-06 06:00 | NUR ---
Titrating Diprivan in prep for planned CPAP trial. Had a restful, comfortable night. No family inquiry this shift. Please see CCU flowsheet for trends and clinical data.
--- NOTE | 2018-02-06 07:30 | NUR ---
SEDATION VACATION INITIATED,DIPRIVAN DRIP HELD, FOR WEANING OFF TRIAL.
[2018-02-06] MEDS: POTASSIUM CHLORIDE 50 ML IV SCH ×4 (07:44→11:00)
--- NOTE | 2018-02-06 07:56 | NUR ---
RECEIVED A 67 Y/O FEMALE PT, A CASE OF ACUTE RESPIRATORY FAILURE, UNDER SEDATION, BREATHING VIA ETT SIZE 7.5, LL 22, ON AC WITH FIO2 40%, RR 18,TV600,PEEP 5. CONNECTED TO LINEN AIDE SHOWING SR, HAS A NGT ON TUBE FEEDING @ RATE 45ML/HR. HAS A RT UPPER PICC LINE RECEIVING IVF N/S @75ML/HR AND DIPRIVAN INF @ 45 mcg/HR, URINATING VIA FC. HOB ELEVATED.
[2018-02-06] MEDS: ACETYLCYSTEINE 10% 4ML VIAL NEB SCH ×2 (07:59→20:02)
--- NOTE | 2018-02-06 08:15 | NUR ---
PT IS AWAKE, ALERT, AND FOLLOWING VERBAL COMMANDS. VENT CHANGES MADE PER MD ORDER, PT IS CURRENTLY ON CPAP +5, PSV 8. PT IS TOLERATING VENT SETTINGS WELL, NO RESP. DISTRESS NOTED AT THIS TIME. ABG'S TO BE DRAWN IN ONE HOUR. WILL CONTINUE TO MONITOR.
[2018-02-06] MEDS: PROTEIN SUPPLEMENT (PROSTAT) 30 ML LIQUID GT SCH (08:28)
[2018-02-06] MEDS: ASPIRIN 81 MG TAB.CHEW GT SCH (08:31)
[2018-02-06] MEDS: PANTOPRAZOLE ORAL SUSPENSION 40 MG SUSPDR.PKT GT SCH (08:31)
[2018-02-06] MEDS: METOPROLOL TARTRATE 25 MG TABLET PO SCH ×2 (08:32→20:27)
[2018-02-06 09:35] LABS: ABG HCO3 20.9 mmol/L; ABG PCO2 29.5 mmHg (35.0-45.0); ABG PH 7.468 (7.350-7.450); ABG PO2 80.5 mmHg (75.0-100.0); ABG SITE RIGHT RADIAL; ABG TOTAL HEMOGLOBIN 10.5 G/dL (12.0-16.0); COHb 0.5 % (0.5-1.5); MetHb 0.1 % (0.0-1.5); O2Hb 94.9 % (94.0-97.0); VENT MODE VENT - CPAP
--- NOTE | 2018-02-06 09:40 | NUR ---
SEEN BY DR TELLO , ORDERED FOR EXTUBATION. RT AROUND AND READY FOR EXTUBATION. ALL OTHER ORDERS RECEIVED.
--- NOTE | 2018-02-06 09:50 | NUR ---
PATIENT EXTUBATED SMOOTHLY, PUT ON N/C 4LPM SPO2 SHOWING 94%, WILL CONTINUE TO MONITOR.
[2018-02-06] MEDS ORDERED: DC PROPOFOL ONCE EXTUBATED XX PRN (10:00)
--- NOTE | 2018-02-06 10:00 | NUR ---
PT WAS EXTUBATED AFTER SUCCESSFUL WEANING TRIAL. DOING WELL ON 4 LPM NASAL CANNULA. NO S/S OF RESPIRATORY DISTRESS NOTED AT THIS TIME. WILL CONTINUE TO MONITOR. NAHOMY AT BEDSIDE. DR TELLO AT BEDSIDE.
[2018-02-06] MEDS: IPRATROPIUM BROMIDE 0.5 MG/2.5 ML NEBU NEB SCH ×4 (11:11→23:02)
--- NOTE | 2018-02-06 12:00 | NUR ---
PT PULLED OUT NGT, SEEMS ANXIOUS AND FRUSTRATED ONLY SPEAKS ISRAELI. FAILED TO RE-INSERT A NEW ONE. CONTACTED DR ATKINS ORDERED FOR A SWALLOW EVALUATION STAT, AND IF PT HAS NO PROBLEMS CAN START ON LIQUID DIET.
--- NOTE | 2018-02-06 13:00 | NUR ---
SWALLOW EVALUATION PARTIALLY DONE, PT REFUSED TO DRINK WATER, BUT RECEIVED ICE CUBES TOLERATED WELL.
[2018-02-06] MEDS: LORAZEPAM 2 MG/1 ML VIAL IV PRN (14:48)
--- NOTE | 2018-02-06 17:00 | NUR ---
CALLED DR GIRON TO INFORM HIM ABOUT THE SWALLOW EVALUATION RESULT, BUT NO ANSWER MESSAGE LEFT.
--- NOTE | 2018-02-06 17:00 | NUR ---
SEEN BY DR LOPEZ , NO NEW ORDERS
[2018-02-06] MEDS ORDERED: methylPREDNISolone SOD SUCC 125 MG/2 ML VIAL IV STA (17:05)
--- NOTE | 2018-02-06 17:09 | NUR ---
CALLED DR TELLO REGARDING PATIENTS VOICE AND STRIDOR SOUND, ORDERED TO GIVE SOLUMEDROL 60MG IV STAT, ORDER RECEIVED. WILL CONTINUE TO MONITOR PATIENTS BREATHING
--- NOTE | 2018-02-06 20:00 | NUR ---
PTS WAS RESTLESS TRIED TO CLIMB OUT OF BED RESTRAIN PUT ON ROMARIO WRIST MEDS GIVEN .AT 2300 UP IN THE CHAIR WITH HELP .PTS IS VERY CONFUSED .SPEAKING FINNISH . TRANSLATED BY RT STILL RESTLESS . PULLING OUT BP CUFF ,O2 SAT .
[2018-02-06] MEDS: ATORVASTATIN 20 MG TABLET PO SCH (20:28)
[2018-02-06] MEDS: ENOXAPARIN SODIUM 40 MG/0.4 ML DISP.SYRIN SQ SCH (20:29)
[2018-02-07] VITALS (11 sets, daily range): BP systolic 104–139; BP diastolic 63–82
[2018-02-07] MEDS: MORPHINE SULFATE 4 MG/1 ML DISP.SYRIN IV PRN ×2 (00:16→00:34)
--- NOTE | 2018-02-07 01:00 | NUR ---
Witnessed waste of Tylenol 2 tabs. Unable to return meds to "return bin" due to meds already opened.
[2018-02-07] MEDS: ALBUTEROL SULFATE 2.5 MG/3 ML NEBU NEB SCH ×7 (02:42→22:59)
[2018-02-07] MEDS: IPRATROPIUM BROMIDE 0.5 MG/2.5 ML NEBU NEB SCH ×7 (02:42→22:59)
[2018-02-07] MEDS: LORAZEPAM 2 MG/1 ML VIAL IV PRN ×2 (03:35→21:21)
[2018-02-07] MEDS: PIPERACILLIN SODIUM/TAZOBACTAM 4.5 G in IV DEXTROSE 5% 50 ML IV SCH (05:03)
[2018-02-07 05:13] LABS: BASOPHILS % (AUTO) 0.4 % (0.0-2.0); HEMATOCRIT 30.6 % (31.2-41.9); HEMOGLOBIN 10.5 g/dL (10.9-14.3); LYMPHOCYTES % (AUTO) 9.9 % (20.5-51.5); MEAN CORPUSCULAR HEMOGLOBIN 31.2 uug (24.7-32.8); MEAN CORPUSCULAR HGB CONC 34 g/dL (32.3-35.6); MEAN CORPUSCULAR VOLUME 90.9 fL (75.5-95.3); MONOCYTES # (AUTO) 0.3 K/uL (2.0-10.0); MONOCYTES % (AUTO) 2.8 % (0.0-11.0); NEUTROPHILS # (AUTO) 8.8 K/uL (1.8-8.9); NEUTROPHILS % (AUTO) 86.9 % (38.5-71.5); PLATELET COUNT (AUTO) 359 K/uL (179-408); RED BLOOD CELL COUNT(AUTO) 3.37 MIL/uL (3.63-4.92); WHITE BLOOD COUNT (AUTO) 10.1 K/uL (3.8-11.8)
[2018-02-07 05:15] LABS: CREATININE 0.7 mg/dL (0.6-1.3); MAGNESIUM 2.3 mg/dL (1.8-2.4); PHOSPHOROUS 4.3 mg/dL (2.5-4.9); POTASSIUM 3.8 mmol/L (3.5-5.1)
[2018-02-07] MEDS: ACETYLCYSTEINE 10% 4ML VIAL NEB SCH ×3 (07:09→19:02)
--- NOTE | 2018-02-07 07:34 | NUR ---
RECEIVED A 67 Y/O FEMALE PT A CASE OF RESPIRATORY FAILURE, ALERT, OX2, CONFUSED, BREATHING N/C 4LPM. PT IS SITTING ON CHAIR WITH RESTRAINTS.CONNECTED TO [employer]OL TEACHER SHOWING SR. HAS A RT UA PICC LINE, URINATING VIA FC.
[2018-02-07] MEDS: PROTEIN SUPPLEMENT (PROSTAT) 30 ML LIQUID GT SCH (08:00)
[2018-02-07] MEDS: ASPIRIN 81 MG TAB.CHEW GT SCH (08:55)
[2018-02-07] MEDS: METOPROLOL TARTRATE 25 MG TABLET PO SCH ×2 (08:55→21:18)
[2018-02-07] MEDS: PANTOPRAZOLE ORAL SUSPENSION 40 MG SUSPDR.PKT GT SCH (08:56)
[2018-02-07 09:22] LABS: ABG BASE EXCESS 0.9 mmol/L; ABG PCO2 32.7 mmHg (35.0-45.0); ABG PH 7.483 (7.350-7.450); ABG PO2 61.3 mmHg (75.0-100.0); ABG SITE RIGHT RADIAL; ABG TOTAL HEMOGLOBIN 10.9 G/dL (12.0-16.0); COHb 0.8 % (0.5-1.5); MetHb 0.3 % (0.0-1.5); O2Hb 90.1 % (94.0-97.0); VENT MODE Nasal Cannula 3.5L
--- NOTE | 2018-02-07 09:30 | NUR ---
PATIENT WALKED WITH P.T ABOUT 20 FEET AND TEHN BACK TO BED, FELT A BIT SHORT OF BREATH , BUT WALKED STEADY USING THE WALKER
[2018-02-07 10:56] LABS: BILIRUBIN,DIRECT 0.2 mg/dL (0.0-0.2); BILIRUBIN,TOTAL 0.3 mg/dL (0.2-1.0); TOTAL PROTEIN, SERUM 7.1 g/dL (6.4-8.2)
--- NOTE | 2018-02-07 11:50 | NUR ---
SWALLOW EVALUATION DONE, PT TOLERATED WELL UT ON PUREE DIET TO BE ADVANCED AFTER A RE-EVALUATION
--- NOTE | 2018-02-07 12:15 | NUR ---
ORDER BY DR FARLEY TO TRANSFER PATIENT TO TELE UNIT, ORDER CARRIED AND PROCESSING
--- NOTE | 2018-02-07 13:30 | NUR ---
PATIENT IS A 67 YEARS OLD FEMALE TRANSFERED IN FROM CCU TO ROOM 211 BY BED PATIENT IS ALERT TO SELF BUT CONFUSED AND DISORIENTED TALKING IN OWN LANGUAGE ALL NEEDS ANTICIPATED AND SATISFIED ON O2 AT 2L/M BY NASAL CANULLA WITH NO SHORTNESS OF BREATH AT THIS TIME PICC LINE TRIPLE LUMEN IS INTACT TO HER RIGHT UPPER ARM FLUSHED PER PROTOCOL.PINON CATH TO GRAVITY DRAINAGE OF DEEDEE COLORED URINE.TELEMETRY IS SINUS TACH LUNCH SERVED AND SHE IS FEEDING SELF WITH MIN ASSIST.MADE COMFORTABLE AND WILL OBSERVE.
[2018-02-07] MEDS: PIPERACILLIN/TAZOBACTAM/D5W 3.375 G in PREMIXED 1 EACH IV SCH ×2 (13:49→21:20)
--- NOTE | 2018-02-07 13:49 | NUR ---
ZOSYN ANTIBIOTICS STARTED ORDERED WITH NO ADVERSE OR ALLERGIC REACTIONS AT THIS TIME.WILL CONTINUE TO OBSERVE.
--- NOTE | 2018-02-07 14:30 | NUR ---
NOTED PATIENTS PICC LINE ON THE BEDSIDE TABLE SHE APPARENTLY PULLED IT OUT OBSERVED WITH WITH TUBE INTACT NO BLEEDING ON SITE OF THE UPPER ARM PRESSURE DRESSING APPLIED PATIENT STATED NO DONT LIKE IT TRYING TO GET OUT OF BED WANTS TO LEAVE UNAWARE OF HER DESTINATION AT RISKS FOR FALL ASSISTED BACK INTO BED ATTEMPTED TO PLACE MITTENS PATIENT VERY AGGRESSIVE AND STRIKING AND SHOUTING.REPOSITIONED AND WILL CONTINUE TO OBSERVE.
--- NOTE | 2018-02-07 15:30 | NUR ---
PATIENT IS STILL VERY AGITATED GETTING OUT OF BED AND THE RESOURCE NURSE HAS BEEN SITTING AT HER BEDSIDE ATTEMPTING TO KEEP HER SAFE BUT SHE IS RELENTLESS CALLED DR SOLIS AND SPOKE WITH HIM WITH NEW ORDERS AND NOTED INFORMED MD THAT PATIENT PULLED OUT HER PICC LINE AND NEEDS A SITTER FOR SAFETY AND SHE STATED OKAY.
[2018-02-07] MEDS ORDERED: ZIPRASIDONE MESYLATE 20 MG VIAL IM STA (15:32)
--- NOTE | 2018-02-07 15:49 | NUR ---
PATIENT MEDICATED WITH GEODON ORDERED AND WILL OBSERVE.
[2018-02-07 16:15] LABS: *BILIRUBIN,URIN 1+ (NEGATIVE); *BLOOD, URINE Trace-intact (NEGATIVE); *CLARITY,URINE SLIGHTLY CLOUDY (CLEAR); *COLOR,URINE DARK YELLOW (YELLOW); *KETONES,URINE NEGATIVE (NEGATIVE); *PROTEIN,URINE 2+ (NEGATIVE); LEUKOCYTE ESTERASE ,URINE NEGATIVE (NEGATIVE); NITRITE, URINE NEGATIVE (NEGATIVE); PH,URINE 5.5 (5.0-8.0); UGLUCOSE NEGATIVE (NEGATIVE)
[2018-02-07 16:54] LABS: CALCIUM OXALATE CRYSTALS,UR MANY /HPF (NONE SEEN); MUCUS,URINE MANY /LPF (0-FEW); SQUAMOUS EPITHELIAL CELL,UR MODERATE /HPF (NONE SEEN); WBC,URINE 0-3 /HPF (0-3)
--- NOTE | 2018-02-07 20:30 | NUR ---
PATIENT AWAKE IN BED , AMOSOX1 VERY AGITATED AND ANXIOUS PULLED OUT HER PINON CATHETER. PRN MEDS GIVEN. CALM AND QUIET ENVIRONMENT PROVIDED. SITTER AT BEDSIDE FOR SAFETY CONCERNS. SAFETY MEASURES IN PLACE
[2018-02-07] MEDS: ATORVASTATIN 20 MG TABLET PO SCH (21:17)
[2018-02-07] MEDS: ENOXAPARIN SODIUM 40 MG/0.4 ML DISP.SYRIN SQ SCH (21:19)
[2018-02-08] VITALS: BP 142/81
[2018-02-08] MEDS: LORAZEPAM 2 MG/1 ML VIAL IV PRN ×4 (02:00→20:09)
[2018-02-08] MEDS: ALBUTEROL SULFATE 2.5 MG/3 ML NEBU NEB SCH ×6 (02:56→23:46)
[2018-02-08] MEDS: IPRATROPIUM BROMIDE 0.5 MG/2.5 ML NEBU NEB SCH ×6 (02:56→23:46)
[2018-02-08] MEDS: PIPERACILLIN/TAZOBACTAM/D5W 3.375 G in PREMIXED 1 EACH IV SCH ×2 (05:03→13:48)
[2018-02-08 05:15] VITALS: BP 124/72
--- NOTE | 2018-02-08 06:30 | NUR ---
PATIENT SLEPT ON AND OFF THROUGH OUT THE SHIFT CONTINUES TO BE AGITATED AND CONFUSED PRN MEDS GIVEN ORDERED. SITTER REMAINS AT BED SIDE FOR SAFETY. NO ACUTE DISTRESS AT PRESENT
[2018-02-08] MEDS: ACETYLCYSTEINE 10% 4ML VIAL NEB SCH ×2 (07:14→19:30)
--- NOTE | 2018-02-08 07:15 | NUR ---
PATIENT RECEIVED IN WHEELCHAIR W/ SITTER, AAOX1, PRYDEINIG SPEAKING. NO ACUTE DISTRESS NOTED. NO SOB NOTED. REFUSED RT. EASILY AGITATED. IV ON RFA #20 INTACT, SECURED WITH KERLIX BANDAGE. NO COMPLAINTS OF PAIN/DISCOMFORT AT THIS TIME. COMFORT MEASURES PROVIDED. SAFETY PRECS OBSERVED AT TALL TIMES. WILL CONTINUE TO MONITOR CLOSELY.
[2018-02-08 08:22] LABS: BASOPHILS # (AUTO) 0.1 K/uL (0.0-8.0); EOSINOPHILS # (AUTO) 0.1 K/uL (0.0-0.7); EOSINOPHILS % (AUTO) 1.2 % (0.0-7.0); HEMOGLOBIN 11.3 g/dL (10.9-14.3); LYMPHOCYTES # (AUTO) 1.6 K/uL (20.0-40.0); LYMPHOCYTES % (AUTO) 16.3 % (20.5-51.5); MEAN CORPUSCULAR HEMOGLOBIN 30.9 uug (24.7-32.8); MEAN CORPUSCULAR HGB CONC 33 g/dL (32.3-35.6); MEAN CORPUSCULAR VOLUME 92.5 fL (75.5-95.3); MONOCYTES # (AUTO) 0.5 K/uL (2.0-10.0); MONOCYTES % (AUTO) 5.6 % (0.0-11.0); NEUTROPHILS # (AUTO) 7.4 K/uL (1.8-8.9); NEUTROPHILS % (AUTO) 75.9 % (38.5-71.5); PLATELET COUNT (AUTO) 441 K/uL (179-408); RED BLOOD CELL COUNT(AUTO) 3.67 MIL/uL (3.63-4.92); WHITE BLOOD COUNT (AUTO) 9.7 K/uL (3.8-11.8)
[2018-02-08 08:34] LABS: CREATININE 0.7 mg/dL (0.6-1.3); MAGNESIUM 2.3 mg/dL (1.8-2.4); PHOSPHOROUS 2.5 mg/dL (2.5-4.9); POTASSIUM 3.6 mmol/L (3.5-5.1)
[2018-02-08] MEDS: PROTEIN SUPPLEMENT (PROSTAT) 30 ML LIQUID GT SCH (09:01)
[2018-02-08] MEDS: ASPIRIN 81 MG TAB.CHEW GT SCH (09:02)
[2018-02-08] MEDS: PANTOPRAZOLE SODIUM 40 MG TABLET.DR PO SCH (09:02)
[2018-02-08] MEDS: METOPROLOL TARTRATE 25 MG TABLET PO SCH ×2 (09:02→20:09)
--- NOTE | 2018-02-08 09:02 | NUR ---
PATIENT NOTED TO BE AGITATED AND CONFUSED M/B ROAMING HALLWAYS AND NON-DIRECTABLE. ADMINISTERED ATIVAN 1MG Q4PRN. WILL CONTINUE TO MONITOR CLOSELY
[2018-02-08 10:30] VITALS: BP 131/66
--- NOTE | 2018-02-08 12:20 | NUR ---
PATIENT CONFUSED, STILL AGITATED AFTER ATIVAN GIVEN. NOTIFIED MARTINE HOFFMANN W/ ORDERS FOR PSYCH CONSULT. NOTED AND CARRIED OUT. CALLED [facility] TO INFORM. FAXED PTS FACE SHEET TO [facility].
[2018-02-08 16:00] VITALS: BP 143/73
[2018-02-08] MEDS: ACETAMINOPHEN 325 MG TABLET PO PRN (17:43)
--- NOTE | 2018-02-08 18:50 | NUR ---
PATIENT AMBULATING WITH SITTER. STILL W/ EPISODES OF CONFUSION. ATIVAN 1MG PRN GIVEN TO MANAGE ANXIETY. IV ACCESS ON RIGHT AC #22 INTACT AND PATENT. NO COMPLAINTS OF PAIN/DISCOMFORT. SAFETY PRECAUTIONS OBSERVED AT ALL TIMES. ALL NEEDS ATTENDED AND ANTICIPATED. CALL LIGHT WITHIN REACH
[2018-02-08] MEDS: ATORVASTATIN 20 MG TABLET PO SCH (20:09)
[2018-02-08] MEDS: ENOXAPARIN SODIUM 40 MG/0.4 ML DISP.SYRIN SQ SCH (20:10)
--- NOTE | 2018-02-08 21:21 | NUR ---
Patient walking around hallway with 1:1 sitter. Restless and agitated. We offered her food and fluid and she is yelling in Omani and constantly trying to leave her room. PRN Ativan given but uneffective.
[2018-02-08] MEDS ORDERED: ZIPRASIDONE MESYLATE 20 MG VIAL IM ONE (22:00)
[2018-02-09] MEDS: IPRATROPIUM BROMIDE 0.5 MG/2.5 ML NEBU NEB SCH ×6 (02:56→22:45)
[2018-02-09] MEDS: ALBUTEROL SULFATE 2.5 MG/3 ML NEBU NEB SCH ×6 (02:57→22:45)
[2018-02-09 05:30] VITALS: BP 139/76
[2018-02-09] MEDS: PANTOPRAZOLE SODIUM 40 MG TABLET.DR PO SCH (06:05)
[2018-02-09] MEDS: ACETYLCYSTEINE 10% 4ML VIAL NEB SCH (07:19)
[2018-02-09] MEDS: PROTEIN SUPPLEMENT (PROSTAT) 30 ML LIQUID GT SCH (07:56)
[2018-02-09] MEDS: LORAZEPAM 2 MG/1 ML VIAL IV PRN (07:56)
[2018-02-09] MEDS: METOPROLOL TARTRATE 25 MG TABLET PO SCH ×2 (08:04→21:48)
[2018-02-09] MEDS: ASPIRIN 81 MG TAB.CHEW GT SCH (08:04)
[2018-02-09 08:10] VITALS: BP 127/72
[2018-02-09] MEDS: MORPHINE SULFATE 4 MG/1 ML DISP.SYRIN IV PRN (11:29)
[2018-02-09 12:08] VITALS: BP 133/89
[2018-02-09] MEDS ORDERED: QUETIAPINE FUMARATE 25 MG TABLET PO PRN (12:30)
[2018-02-09 15:16] VITALS: BP 132/81
[2018-02-09] MEDS ORDERED: OLANZAPINE 2.5 MG TABLET PO PRN (15:30)
[2018-02-09] MEDS: ACETAMINOPHEN 325 MG TABLET PO PRN ×2 (17:39→22:02)
--- NOTE | 2018-02-09 19:02 | NUR ---
Patient has been agitated throughout the shift and will not go in room and relax. Multiple modes of relief tried, and patient still continues to be restless. Patient was seen by Dr. Cardozo and orders received. Currently patient with sitter walking in hallways, no physical distress noted.
--- NOTE | 2018-02-09 19:30 | NUR ---
RECEIVED PATIENT IN HER ROOM, NO SOB NO CHEST PAIN NOTED, NO AGITATION NOTED, PATIENT STAY IN BED, AND OFFER DINNER LATER, PATIENT WANTING TO SLEEP.
[2018-02-09 20:00] VITALS: BP 108/65
[2018-02-09] MEDS: ATORVASTATIN 20 MG TABLET PO SCH (21:48)
[2018-02-09] MEDS: ENOXAPARIN SODIUM 40 MG/0.4 ML DISP.SYRIN SQ SCH (21:50)
--- NOTE | 2018-02-09 22:00 | NUR ---
PATIENT AWAKE, OFFER DINNER AND ATE 100%, ENCOURAGED TO DRINK. NO COMPLAIN OF PAIN AT THIS TIME.
[2018-02-10] MEDS: IPRATROPIUM BROMIDE 0.5 MG/2.5 ML NEBU NEB SCH ×6 (03:30→23:19)
[2018-02-10] MEDS: ALBUTEROL SULFATE 2.5 MG/3 ML NEBU NEB SCH ×6 (03:30→23:19)
[2018-02-10 04:00] VITALS: BP 109/54
[2018-02-10] MEDS: ACETAMINOPHEN 325 MG TABLET PO PRN (05:11)
[2018-02-10] MEDS: PANTOPRAZOLE SODIUM 40 MG TABLET.DR PO SCH (06:06)
--- NOTE | 2018-02-10 06:27 | NUR ---
PATIENT SLEPT FOR 5 HRS, NO AGITATION NOTED AT THIS TIME. CONT ON 1;1 FOR SAFETY, KEPT CLEAN AND DRY, OFFER SHOWER TO PATIENT BUT PREFER TO TAKE IT LATER. CONT ON PAIN MANAGEMENT, DUE TO PAIN ON LOWER BACK AND HANDS. CONT TO MONITOR.
[2018-02-10 08:00] VITALS: BP 112/58
[2018-02-10] MEDS: MORPHINE SULFATE 4 MG/1 ML DISP.SYRIN IV PRN ×4 (08:32→21:58)
[2018-02-10] MEDS: ASPIRIN 81 MG TAB.CHEW GT SCH (08:32)
--- NOTE | 2018-02-10 08:32 | NUR ---
medicated for low back pains Addendum: 02/10/18 at 0840 by ORTIZ NORIEGA RN Amended: Links added.
[2018-02-10] MEDS: METOPROLOL TARTRATE 25 MG TABLET PO SCH ×2 (08:34→20:21)
[2018-02-10] MEDS: PROTEIN SUPPLEMENT (PROSTAT) 30 ML LIQUID GT SCH (09:25)
[2018-02-10 12:00] VITALS: BP 110/64
--- NOTE | 2018-02-10 13:28 | NUR ---
medicated for low back pain scale / Addendum: 02/10/18 at 1328 by ORTIZ NORIEGA RN Amended: Links added.
[2018-02-10 16:00] VITALS: BP 118/68
--- NOTE | 2018-02-10 18:19 | NUR ---
medicated for back pains 03/15 Addendum: 02/10/18 at 1820 by ORTIZ NORIEGA RN Amended: Lyudmila added. Addendum: 02/10/18 at 1820 by ORTIZ NORIEGA RN Amended: Lyudmila added.
--- NOTE | 2018-02-10 19:38 | NUR ---
REPORT given to Norma Addendum: 02/10/18 at 1938 by ORTIZ NORIEGA RN Amended: Links added.
--- NOTE | 2018-02-10 20:00 | NUR ---
RECEIVED PATIENT AWAKE IN BED WITH 1:1 SITTER AT BEDSIDE. PATIENT IS A/O X2. BARBADIAN SPEAKING BUT ABLE TO MAKE SIMPLE NEEDS KNOWN. DENIES PAIN OR DISCOMFORT. NO RESP. DISTRESS NOTED. HEPLOCK INTACT AND PATENT, NOTED TO RIGHT AC #20 GAUGE. BED ALARM ON. CALL LIGHT IN REACH. ALL NEEDS ATTENDED. WILL CONTINUE TO MONITOR AND ASSESS.
[2018-02-10 20:14] VITALS: BP 125/64
[2018-02-10] MEDS: ATORVASTATIN 20 MG TABLET PO SCH (20:20)
[2018-02-10] MEDS: ENOXAPARIN SODIUM 40 MG/0.4 ML DISP.SYRIN SQ SCH (20:21)
[2018-02-11] MEDS: IPRATROPIUM BROMIDE 0.5 MG/2.5 ML NEBU NEB SCH ×7 (02:34→22:52)
[2018-02-11] MEDS: ALBUTEROL SULFATE 2.5 MG/3 ML NEBU NEB SCH ×7 (02:34→22:52)
[2018-02-11] MEDS: PANTOPRAZOLE SODIUM 40 MG TABLET.DR PO SCH (06:12)
[2018-02-11 06:21] LABS: BASOPHILS # (AUTO) 0.1 K/uL (0.0-8.0); BASOPHILS % (AUTO) 1.1 % (0.0-2.0); EOSINOPHILS # (AUTO) 0.2 K/uL (0.0-0.7); EOSINOPHILS % (AUTO) 1.7 % (0.0-7.0); HEMATOCRIT 33.2 % (31.2-41.9); HEMOGLOBIN 11.1 g/dL (10.9-14.3); LYMPHOCYTES # (AUTO) 1.9 K/uL (20.0-40.0); LYMPHOCYTES % (AUTO) 21.5 % (20.5-51.5); MEAN CORPUSCULAR HEMOGLOBIN 31.1 uug (24.7-32.8); MEAN CORPUSCULAR HGB CONC 33 g/dL (32.3-35.6); MEAN CORPUSCULAR VOLUME 93.4 fL (75.5-95.3); MONOCYTES # (AUTO) 0.5 K/uL (2.0-10.0); MONOCYTES % (AUTO) 5.3 % (0.0-11.0); NEUTROPHILS # (AUTO) 6.3 K/uL (1.8-8.9); NEUTROPHILS % (AUTO) 70.4 % (38.5-71.5); PLATELET COUNT (AUTO) 432 K/uL (179-408); RED BLOOD CELL COUNT(AUTO) 3.56 MIL/uL (3.63-4.92)
[2018-02-11 06:36] LABS: BILIRUBIN,TOTAL 0.3 mg/dL (0.2-1.0); CREATININE 0.7 mg/dL (0.6-1.3); MAGNESIUM 2.2 mg/dL (1.8-2.4); PHOSPHOROUS 4.2 mg/dL (2.5-4.9); POTASSIUM 3.9 mmol/L (3.5-5.1); TOTAL PROTEIN, SERUM 6.5 g/dL (6.4-8.2)
--- NOTE | 2018-02-11 06:40 | NUR ---
PATIENT ASLEEP IN BED. SLEPT WELL THROUGHOUT THE NIGHT. SITTER AT BEDSIDE. CALL LIGHT IN REACH. ALL NEEDS ATTENDED. WILL CONTINUE TO MONITOR AND ASSESS,
[2018-02-11 06:44] VITALS: BP 110/68
[2018-02-11] MEDS: PROTEIN SUPPLEMENT (PROSTAT) 30 ML LIQUID GT SCH (08:00)
[2018-02-11] MEDS: ASPIRIN 81 MG TAB.CHEW GT SCH (08:18)
[2018-02-11] MEDS: METOPROLOL TARTRATE 25 MG TABLET PO SCH ×2 (08:19→20:00)
[2018-02-11] MEDS: MORPHINE SULFATE 4 MG/1 ML DISP.SYRIN IV PRN ×3 (08:20→20:06)
[2018-02-11 11:54] VITALS: BP 109/59
[2018-02-11 16:27] VITALS: BP 105/57
[2018-02-11 19:30] VITALS: BP 122/62
--- NOTE | 2018-02-11 19:30 | NUR ---
Patient stable at start of shift with no acute distress. Vital signs within range. Patient is A/Ox3-4, Colombian speaking & able to make her needs known. 1:1 sitter at the bedside for safety. On 2L o2 via NC. No SOB noted. Complaining of lower back pain at start of shift. Will medicate per MD order & reassess. Noted with right AC IV site which is patent & flushing well. Room checked for safety at start of shift. Will continue to monitor through shift.
[2018-02-11] MEDS: ATORVASTATIN 20 MG TABLET PO SCH (20:00)
[2018-02-11] MEDS: ENOXAPARIN SODIUM 40 MG/0.4 ML DISP.SYRIN SQ SCH (20:01)
[2018-02-11] MEDS: ZOLPIDEM 5 MG TABLET PO PRN (22:45)
[2018-02-12] MEDS: IPRATROPIUM BROMIDE 0.5 MG/2.5 ML NEBU NEB SCH ×6 (03:30→22:38)
[2018-02-12] MEDS: ALBUTEROL SULFATE 2.5 MG/3 ML NEBU NEB SCH ×6 (03:30→22:38)
[2018-02-12 04:00] VITALS: BP 131/66
[2018-02-12] MEDS: PANTOPRAZOLE SODIUM 40 MG TABLET.DR PO SCH (06:11)
--- NOTE | 2018-02-12 06:26 | NUR ---
Slept well during the night. No agitation or combativeness noted. 1:1 sitter at the bedside for safety. All needs attended to. Medications administered per MD order. Safety & comfort measures implemented. Call light within reach. Will endorse to oncoming shift.
[2018-02-12] MEDS: PROTEIN SUPPLEMENT (PROSTAT) 30 ML LIQUID GT SCH (07:56)
[2018-02-12] MEDS: ASPIRIN 81 MG TAB.CHEW GT SCH (08:34)
[2018-02-12] MEDS: METOPROLOL TARTRATE 25 MG TABLET PO SCH ×2 (08:34→20:27)
[2018-02-12] MEDS: MORPHINE SULFATE 4 MG/1 ML DISP.SYRIN IV PRN ×3 (08:35→20:30)
[2018-02-12 11:00] VITALS: BP 102/55
[2018-02-12 19:00] VITALS: BP 131/79
--- NOTE | 2018-02-12 20:00 | NUR ---
Received patient laying comfortably in bed. Sitter at bedside for safety. A/O x 3 but mainly Belizean speaking. No acute distress noted. O2 2L NC. Skin is intact, except noted discoloration and scratches on bilateral arms. IV on the right AC patent and intact. Safety initiated. Call light within reach. Room is kept clutter free. Will closely monitor.
[2018-02-12] MEDS: ATORVASTATIN 20 MG TABLET PO SCH (20:27)
[2018-02-12] MEDS: ENOXAPARIN SODIUM 40 MG/0.4 ML DISP.SYRIN SQ SCH (20:29)
[2018-02-12] MEDS: ZOLPIDEM 5 MG TABLET PO PRN (21:19)
[2018-02-13] MEDS: IPRATROPIUM BROMIDE 0.5 MG/2.5 ML NEBU NEB SCH ×6 (02:30→22:30)
[2018-02-13] MEDS: ALBUTEROL SULFATE 2.5 MG/3 ML NEBU NEB SCH ×6 (02:30→22:30)
[2018-02-13 04:00] VITALS: BP 110/65
--- NOTE | 2018-02-13 05:33 | NUR ---
Patient slept 8 hours. Sitter at bedside. No acute distress noted. C/o back pain 01/13. Meds given, stated relief. Patient remains at O2 2L NC. Remains calm and cooperative. Vitals signs stable. Safety and comfort measures maintained t/o shift. All meds given as ordered. All needs met.
[2018-02-13] MEDS: MORPHINE SULFATE 4 MG/1 ML DISP.SYRIN IV PRN ×4 (05:41→20:23)
[2018-02-13] MEDS: PANTOPRAZOLE SODIUM 40 MG TABLET.DR PO SCH (06:08)
--- NOTE | 2018-02-13 07:38 | NUR ---
Awake, calm and cooperative. HHN treatment on going. 1:1 sitter at bedside
[2018-02-13] MEDS: ASPIRIN 81 MG TAB.CHEW GT SCH (08:59)
[2018-02-13] MEDS: METOPROLOL TARTRATE 25 MG TABLET PO SCH ×2 (08:59→20:24)
[2018-02-13] MEDS: PROTEIN SUPPLEMENT (PROSTAT) 30 ML LIQUID GT SCH (09:00)
--- NOTE | 2018-02-13 10:15 | NUR ---
Complaining of back pain. Morphine given as ordered with relief
[2018-02-13 11:00] VITALS: BP 119/59
--- NOTE | 2018-02-13 11:30 | NUR ---
Walking in the hallway with sitter, calm and compliant with care
--- NOTE | 2018-02-13 17:43 | NUR ---
Eating fairly. 1:1 sitter at bedside
--- NOTE | 2018-02-13 19:45 | NUR ---
RECEIVED PATIENT AWAKE IN BED WITH 1:1 SITTER AT BEDSIDE. PATIENT IS A/O X3. SOUTH AFRICAN SPEAKING BUT ABLE TO MAKE SIMPLE NEEDS KNOWN. DENIES PAIN AT THIS TIME. NO RESP. DISTRESS NOTED. HEPLOCK INTACT AND PATENT, NOTED TO RIGHT FA #20 GAUGE. VS WNL. CALL LIGHT IN REACH. ALL NEEDS ATTENDED. WILL CONTINUE TO MONITOR AND ASSESS.
[2018-02-13 19:53] VITALS: BP 121/68
[2018-02-13] MEDS: ATORVASTATIN 20 MG TABLET PO SCH (20:24)
[2018-02-13] MEDS: ENOXAPARIN SODIUM 40 MG/0.4 ML DISP.SYRIN SQ SCH (20:25)
[2018-02-13] MEDS: ZOLPIDEM 5 MG TABLET PO PRN (20:31)
[2018-02-14] MEDS ORDERED: MORPHINE SULFATE 4 MG/1 ML DISP.SYRIN IM PRN (00:15)
[2018-02-14 04:00] VITALS: BP 120/65
[2018-02-14] MEDS: IPRATROPIUM BROMIDE 0.5 MG/2.5 ML NEBU NEB SCH ×6 (04:30→23:04)
[2018-02-14] MEDS: ALBUTEROL SULFATE 2.5 MG/3 ML NEBU NEB SCH ×6 (04:30→23:04)
--- NOTE | 2018-02-14 05:58 | NUR ---
PATIENT ASLEEP IN BED. SITTER AT BEDSIDE. SLEPT WELL THROUGHOUT THE NIGHT. SITTER AT BEDSIDE FOR SAFETY. CALL LIGHT IN REACH. ALL NEEDS ATTENDED, WILL CONTINUE TO MONITOR.
[2018-02-14] MEDS: PANTOPRAZOLE SODIUM 40 MG TABLET.DR PO SCH (06:06)
--- NOTE | 2018-02-14 07:00 | NUR ---
Pt is laying in bed comfortably. No s/s of respiratory distress noted. pt noted to have a nasal cannula, pt would remove a t times. O2 sat is wnl. All safety needs are met. Pt has a sitter for safety.
[2018-02-14] MEDS ORDERED: ONDANSETRON 4 MG/2 ML VIAL IV PRN (08:15)
[2018-02-14] MEDS ORDERED: LORAZEPAM 2 MG/1 ML VIAL IV PRN (08:15)
[2018-02-14] MEDS: ASPIRIN 81 MG TAB.CHEW GT SCH (08:42)
[2018-02-14] MEDS: METOPROLOL TARTRATE 25 MG TABLET PO SCH ×2 (08:43→21:00)
[2018-02-14] MEDS: PROTEIN SUPPLEMENT (PROSTAT) 30 ML LIQUID GT SCH (08:43)
[2018-02-14] MEDS: NEOMY/BACITRAC/POLYMI OINT 28.35 GM TUBE TOP SCH ×2 (08:44→16:46)
[2018-02-14] MEDS: MORPHINE SULFATE 4 MG/1 ML DISP.SYRIN IM PRN ×2 (08:44→21:14)
[2018-02-14] MEDS ORDERED: LORAZEPAM 1 MG TABLET PO PRN (08:45)
[2018-02-14] MEDS ORDERED: ONDANSETRON ODT 4 MG TAB.RAPDIS SL PRN (08:45)
[2018-02-14] MEDS ORDERED: ATEN50TA PO (11:17)
[2018-02-14] MEDS ORDERED: PANT40TA4 PO (11:17)
[2018-02-14] MEDS ORDERED: HYDROCODONE/APAP 5-325MG TABLET PO ONE (11:45)
[2018-02-14 16:00] VITALS: BP 111/60
--- NOTE | 2018-02-14 16:55 | NUR ---
pt is asking for [place] PO, pt states "I want to take Morphine at night", advised the GRAIN ELEVATOR OPERATOR
[2018-02-14] MEDS: HYDROCODONE/APAP 5-325MG TABLET PO PRN (17:54)
[2018-02-14] MEDS ORDERED: HYDROCODONE/APAP 5-325MG TABLET ONE (17:58)
--- NOTE | 2018-02-14 18:24 | NUR ---
[facility] ORDER IS NOT IN PYXIS TO REMOVE, PER PHARMACY "OK TO OVERRIDE THE MED." OVERWROTE THE MED WITH CHARGE NURSE
--- NOTE | 2018-02-14 19:02 | NUR ---
no change noted. No respiratory distress noted. All safety needs are met.
--- NOTE | 2018-02-14 19:10 | NUR ---
RECEIVED PT AWAKE ON BED, NO SIGNS OF RESPIRATORY DISTRESS NOTED. ON 1:1 SITTER AT BEDSIDE FOR SAFETY. ON O2 2L VIA NC, TOLERATED WELL. BED PLACED ON, LOCKED POSITION WITH TWO SIDE RAILS UP, BED ALARM ON.
[2018-02-14 19:35] VITALS: BP 114/63
[2018-02-14] MEDS: ATORVASTATIN 20 MG TABLET PO SCH (21:13)
[2018-02-14] MEDS: ENOXAPARIN SODIUM 40 MG/0.4 ML DISP.SYRIN SQ SCH (21:18)
[2018-02-14] MEDS: ZOLPIDEM 5 MG TABLET PO PRN (22:39)
[2018-02-15] MEDS: ALBUTEROL SULFATE 2.5 MG/3 ML NEBU NEB SCH ×6 (03:08→19:23)
[2018-02-15] MEDS: IPRATROPIUM BROMIDE 0.5 MG/2.5 ML NEBU NEB SCH ×6 (03:08→19:23)
[2018-02-15 05:05] VITALS: BP 98/60
--- NOTE | 2018-02-15 06:00 | NUR ---
PT COMPLAINT OF BACK PAIN, PAIN SCALE 10/10. MORPHINE IM PULLED FROM PYXIS AND WASTED 2MG BUT UNABLE TO ADMINISTER DUE TO DECREASED BLOOD PRESSURE 98/63. REMAINING 2 MG OF MORPHINE WASTED. PHARMACY AWARE.
[2018-02-15] MEDS: PANTOPRAZOLE SODIUM 40 MG TABLET.DR PO SCH (06:27)
--- NOTE | 2018-02-15 06:50 | NUR ---
PT SLEPT THROUGHOUT THE SHIFT, ON 1:1 SITTER AT BEDSIDE FOR SAFETY. NO SIGNS OF ACUTE DISTRESS AT THIS TIME. ALL NEED ATTENDED AND MET. SAFE ENVIRONMENT MAINTAINED AT ALL TIMES, CALL LUU WITHIN REACH.
[2018-02-15] MEDS: NEOMY/BACITRAC/POLYMI OINT 28.35 GM TUBE TOP SCH ×2 (08:11→16:08)
[2018-02-15] MEDS: PROTEIN SUPPLEMENT (PROSTAT) 30 ML LIQUID GT SCH (08:11)
[2018-02-15] MEDS: ASPIRIN 81 MG TAB.CHEW GT SCH (08:11)
[2018-02-15] MEDS: METOPROLOL TARTRATE 25 MG TABLET PO SCH (08:12)
[2018-02-15] MEDS: HYDROCODONE/APAP 5-325MG TABLET PO PRN ×2 (10:01→15:11)
[2018-02-15 11:27] VITALS: BP 105/53
[2018-02-15 15:49] VITALS: BP 123/63
--- NOTE | 2018-02-15 18:02 | NUR ---
PATIENT DISCHARGED TO [facility] [id number] [place] [address]. DAUGHTER NOTIFIED. BELONGING LIST DONE. PATIENT HAS NO IV ACCESS. PT INCAPABLE OF UNDERSTANDING DISCHARGE INSTRUCTIONS, WITNESSED BY ANOTHER RN.
--- NOTE | 2018-02-15 18:15 | NUR ---
AMBULANCE ARRIVED, PT REFUSED TO GO TO THE [facility]. PT STATED WOULD RATHER END UP IN THE STREETS. PT STATED WILL NOT GO ANYWHERE BUT STAY IN THE HOSPITAL UNTIL SHE IS PICKED UP BY HER DAUGHTER'S FRIEND PERRI. MOLD CAR PUSHER AND ROMANIAN SPEAKING RN PRESENT.
--- NOTE | 2018-02-15 18:30 | NUR ---
DAUGHTER WAS CALLED OVER THE PHONE.
--- NOTE | 2018-02-15 19:04 | NUR ---
PATIENT LEFT THE UNIT VIA GURNEY/AMBULANCE. PATIENT IS ALERT, IN NO DISTRESS, BELONGINGS WITH THE PATIENT.
--- NOTE | 2018-02-15 19:29 | NUR ---
PT WAS RESISTANT TO LEAVE TO [facility]. PT WANTS TATE (DAUGHTER'S BOYFRIEND) TO PICK HER UP FROM [facility] ([id number] [facility] [id number]; [phone]). DAUGHTER WAS GIVEN ADDRESS.
--- NOTE | 2018-02-15 21:00 | NUR ---
WILIAM QUINN NP. NOTIFIED REGARDING PT BEING BROUGHT BACK BY TRANSPORT.
--- NOTE | 2018-02-15 21:20 | NUR ---
PT BROUGHT PER AMBULANCE STAFF (ADE) Addendum: 02/15/18 at 2208 by MARBIN MARTINS RN PT BROUGHT BACK TO UNIT, PER AMBULANCE STAFF (ADE), SECONDARY TO REFUSAL OF [facility] TO ACCEPT PATIENT. PT IN FAIR CONDITION, NO ACUTE DISTRESS NOTED AT THIS TIME. KEPT WARM AND COMFORTABLE. NEEDS ATTENDED AND MET. SAFETY MEASURES INITIATED.
--- NOTE | 2018-02-15 21:30 | NUR ---
DATABASE SPECIALISTChristine GARVEY, COMMUNICATED TO FAST BRIM POUNCER THAT [facility] WILL ACCEPT PT, TRANSPORT SERVICE ARRANGED AND ETA WILL BE AT 2300.PT MADE AWARE AND OKAYED TO GET DRESSED .RESTING QUIETLY IN BED.
--- NOTE | 2018-02-15 23:15 | NUR ---
TRANSPORT TEAM ARRIVED, VITAL SIGNS TAKEN AND RECORDED, THIS TIME PT BECAME UPSET AND REFUSED TO GO, [employer] PHONE USED TO COMMUNICATE AND HELP INTERPRET WHAT PT WANTS TO CONVEY,APPARENTLY SHE DIDNT WANT TO GO TO ANY [facility] OR OTHER FACILITIES.
[2018-02-15] MEDS ORDERED: MORPHINE SULFATE 2 MG/1 ML DISP.SYRIN ONE (23:50)
[2018-02-15] MEDS ORDERED: ZOLPIDEM 5 MG TABLET ONE (23:50)
[2018-02-15] MEDS: ZOLPIDEM 5 MG TABLET PO PRN (23:52)
[2018-02-16] MEDS: MORPHINE SULFATE 4 MG/1 ML DISP.SYRIN IM PRN (01:08)
[2018-02-16] MEDS ORDERED: ALBUTEROL SULFATE 2.5 MG/3 ML NEBU ONE (01:10)
[2018-02-16] MEDS ORDERED: IPRATROPIUM BROMIDE 0.5 MG/2.5 ML NEBU ONE (01:10)
[2018-02-16] MEDS: IPRATROPIUM BROMIDE 0.5 MG/2.5 ML NEBU NEB SCH ×4 (01:23→11:19)
[2018-02-16] MEDS: ALBUTEROL SULFATE 2.5 MG/3 ML NEBU NEB SCH ×4 (01:23→11:20)
[2018-02-16 06:46] VITALS: BP 134/78
[2018-02-16] MEDS: ENOXAPARIN SODIUM 40 MG/0.4 ML DISP.SYRIN SQ SCH (07:00)
[2018-02-16] MEDS: METOPROLOL TARTRATE 25 MG TABLET PO SCH ×2 (07:00→09:57)
[2018-02-16] MEDS: ATORVASTATIN 20 MG TABLET PO SCH (07:00)
--- NOTE | 2018-02-16 07:12 | NUR ---
PT RESTING COMFORTABLY ON BED, NO SIGNS OF ACUTE DISTRESS NOTED AT THIS TIME. SAFE ENVIRONMENT MAINTAINED AT ALL TIMES, CALL LUU WITHIN REACH. PT VERBALIZED PERRI (FAMILY FRIEND) WILL PICK HER UP TODAY AT 8AM, CHARGE NURSE MADE AWARE. WILL ENDORSE ACCORDINGLY TO AM STAFF.
--- NOTE | 2018-02-16 07:30 | NUR ---
RECEIVED PATIENT IN BED, IN NO DISTRESS. PER REPORT, PATIENT CAME BACK TO THE UNIT VIA AMBULANCE AFTER BEING DISCHARGED. AWAITING FOR YONI (DAUGHTER'S FIANCE) TO PICK HER UP. SAFETY MEASURES IN PLACE, 1:1 SITTER PROVIDED.
--- NOTE | 2018-02-16 08:02 | NUR ---
Patient is out of bed at this time. Does not want to sit back down for breathing treatment. Meds are also not in pyxis at this time. Charge Nurse aware of this. No respiratory distress noted.
[2018-02-16 09:00] VITALS: BP 134/74
[2018-02-16] MEDS: ASPIRIN 81 MG TAB.CHEW GT SCH (09:00)
[2018-02-16 09:57] VITALS: BP 134/74
[2018-02-16] MEDS: PANTOPRAZOLE SODIUM 40 MG TABLET.DR PO SCH (09:57)
[2018-02-16] MEDS: PROTEIN SUPPLEMENT (PROSTAT) 30 ML LIQUID GT SCH (09:58)
[2018-02-16] MEDS: NEOMY/BACITRAC/POLYMI OINT 28.35 GM TUBE TOP SCH (09:58)
--- NOTE | 2018-02-16 10:40 | NUR ---
PAT[facility] PR[facility] PATIENT LEFT THE UNIT VIA WHEEL CHAIR, BELONGINGS WITH HER. PATIENT IS ALERT, IN NO DISTRESS.
== END 2018-02-16 10:45 | DRG 870 ==
LOC: ER 11:57 → CCU 19:19 → MED 02-07 13:30 → TELE 02-07 22:07 → MED 02-09 17:08 → UNDODISIN 02-15 19:51
PROVIDERS: ADMIT Internal Medicine; ATTEND Internal Medicine
PROC: 5A1955Z Respiratory Ventilation, Greater than 96 Consecutive Hours (ICD-10-PCS; principal; 2018-01-31)
PROC: 0BH17EZ Insertion of Endotracheal Airway into Trachea, Via Natural or Artificial Opening (ICD-10-PCS; 2018-01-31)
PROC: 02HV33Z Insertion of Infusion Device into Superior Vena Cava, Percutaneous Approach (ICD-10-PCS; 2018-02-01)
DX: A41.51 Sepsis due to Escherichia coli [E. coli] (principal); J69.0 Pneumonitis due to inhalation of food and vomit; G92 Toxic encephalopathy; J96.01 Acute respiratory failure with hypoxia; I21.A1 Myocardial infarction type 2; E43 Unspecified severe protein-calorie malnutrition; I50.31 Acute diastolic (congestive) heart failure; N39.0 Urinary tract infection, site not specified; J98.11 Atelectasis; F11.20 Opioid dependence, uncomplicated; R65.20 Severe sepsis without septic shock; Z16.11 Resistance to penicillins; Z16.29 Resistance to other single specified antibiotic; E87.6 Hypokalemia; Z68.27 Body mass index [BMI] 27.0-27.9, adult; Z87.01 Personal history of pneumonia (recurrent); I11.0 Hypertensive heart disease with heart failure; E86.0 Dehydration; L80 Vitiligo; I70.0 Atherosclerosis of aorta; E83.39 Other disorders of phosphorus metabolism; E78.5 Hyperlipidemia, unspecified; I25.2 Old myocardial infarction; F29 Unspecified psychosis not due to a substance or known physiological condition; D64.9 Anemia, unspecified; D69.6 Thrombocytopenia, unspecified
CPT/HCPCS: 36415; 36569; 36600; 70030-TC; 70450; 71045; 80307; 83550; 83605; 83735; 84100; 84443; 84478; 85025; 85730; 87040; 87070; 87077; 87086; 92526; 92610; 93005; 93307; 94002; 94003; 94640; 94664; 97116; 97530; A4663; C9113; J0330; J1580; J1650; J1940; J2060; J2250; J2270; J2543; J2930; J3370; J3480; J3486; J3490; J3590; J7030; J7050; J7060